=== PATIENT | female | born 1955 | race Caucasian/White ===

== ENCOUNTER 2018-06-16 13:35 | Outpatient (CLI) | payer BC ==
--- NOTE | 2018-06-16 14:57 | RAD ---
THREE VIEWS OF THE RIGHT FOOT: Comparison: None. History: Hallux valgus deformity of the foot. Patient's foot was operated on 20 years ago. FINDINGS: Three views of the right foot shows no evidence of acute fracture or dislocation. The first metatarsa l head hyperplasia and significant narrowing of the great toe metatarsal phalangeal joint. Osseous er osions are seen surrounding the great toe metatarsal phalangeal joint. There is flattening of the second metatarsal head. There is bony expansion of the proximal phalanx of the small toe. There is an osseous erosions involving the neck of the fifth metatarsal. Degenerative changes and erosions are seen surrounding the bones of the mid foot. IMPRESSION: 1. Degenerative changes involving the great toe and midfoot. Erosive osteoarthropathy or gout are pos sibilities. 2. Nonspecific expansile lesion involving the proximal phalanx of the small toe. This has a narrow zo ne of transition and appears benign. POS: [facility]
--- NOTE | 2018-06-16 15:26 | RAD ---
LEFT FOOT THREE VIEWS: HISTORY: Hallux valgus. COMPARISON: None. FINDINGS: There is osteonecrosis of the second metatarsal head. Severe degenerative disease of the great toe m etatarsophalangeal joint. There is erosion of the distal phalanx and middle phalanx, crossing the di stal interphalangeal joint of the middle toe. Severe degenerative changes of the midfoot. Mild flatfoot deformity. Large plantar calcaneal spur. IMPRESSION: 1. Findings concerning for osteomyelitis and septic arthritis of the distal phalanx and middle phala nx, middle toe, crossing the distal interphalangeal joint. 2. Severe degenerative changes of the mid foot, likely neuropathic in nature. 3. 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 POS: [facility]
== END 2018-06-16 13:36 | disposition home or self-care (01) ==
LOC: BICRAD 13:35
PROVIDERS: ATTEND Podiatrist
DX: M21.611 Bunion of right foot (principal); M20.10 Hallux valgus (acquired), unspecified foot; M19.072 Primary osteoarthritis, left ankle and foot; M19.071 Primary osteoarthritis, right ankle and foot; M87.875 Other osteonecrosis, left foot

== ENCOUNTER 2019-06-20 07:54 | Outpatient (CLI) | payer MEDICARE, BC ==
--- NOTE | 2019-06-20 10:40 | CT ---
PRE AND POST CONTRAST SOFT TISSUE NECK CT: HISTORY: Hyperparathyroidism. Evaluate for parathyroid adenoma. COMPARISON: None. FINDINGS: Visualized brain parenchyma is unremarkable. Visualized sinuses demonstrate adequate aeration. Aerodigestive tract is patent. No mucosal abnormality. Midline fatty raphae of the tongue is preser cielo. No obvious masses in the oral cavity. There is mild fullness at the level of the lingual tonsi ls, likely due to lymphoid hyperplasia. Epiglottis has a normal caliber. Preepiglottic fat is preserved. The supraglottic, glottic, and sub glottic larynx is unremarkable. Symmetric attenuation of the paraspinal muscles. Symmetric attenuation of the parotid and submandibular glands. No evidence of lymphadenopathy by size criteria. Central spinal canal is patent. No significant central canal stenosis. There are varying degrees of foraminal narrowing due to degenerative change. Cervical spine vertebral body heights are maintaine d. No fracture. No acute abnormality in the mediastinum or visualized lung parenchyma. Chronic lung parenchymal garcia ges are noted. The great vessels of the neck do demonstrate patency. There is evidence of atherosclerosis of the vi sualized aorta. There is calcified plaque as well as a stent in the right carotid bifurcation and pr oximal internal carotid artery. Evaluation is limited by technique. The stent appears to be patent. There is hypoattenuation in the right thyroid lobe, measuring 0.7 x 0.5 cm. Additional hypoattenuati on of the left thyroid lobe measuring 0.6 x 0.4 cm. Posterior to the left thyroid lobe is an intrinsic hypodense lesion with evidence of homogeneous enha ncement. This lesion is just lateral to the left aspect of the esophagus and just posterior to the l eft tracheoesophageal groove. The lesion measures 1.3 x 0.5 cm. Location and imaging characteristic s favor a left-sided parathyroid adenoma. Additional candidates for a parathyroid adenoma are not ap preciated. Incidental transvenous pacer is incompletely evaluated. There are degenerative changes in the right acromioclavicular joint space. IMPRESSION: Left-sided parathyroid adenoma as described above. The patient was scheduled for a nuclear medicine scan today; however, the patient did not feel up to it. The patient has been rescheduled for June 12. POS: [facility]
[2019-06-20] MEDS ORDERED: Iopamidol 370 76% 100 ML VIAL ONE (14:48)
== END 2019-06-20 07:55 | disposition home or self-care (01) ==
LOC: CT 07:54
PROVIDERS: ATTEND Otolaryngology Plastic Surgery within the Head & Neck
DX: E21.0 Primary hyperparathyroidism (principal); D35.1 Benign neoplasm of parathyroid gland
CPT/HCPCS: 70492; 82565; Q9967

== ENCOUNTER 2019-09-14 09:19 | Outpatient (CLI) | payer MEDICARE, BC ==
--- NOTE | 2019-09-14 12:57 | NM ---
Radionucleotide parathyroid scan HISTORY: Hypercalcemia. Abnormal CT scan. FINDINGS: Correlated with CT neck 06/20/2019. Immediately posterior to the superior pole left thyroid lobe is a focal area of significantly increas ed sestamibi uptake on the delayed images. On the current SPECT images, it correlates with the hyperenhancing nodule seen on recent CT. No other focal areas of abnormal uptake are evident. IMPRESSION : Positive exam. Parathyroid adenoma behind the superior pole left thyroid lobe.
== END 2019-09-14 09:20 | disposition home or self-care (01) ==
LOC: NM 09:19
PROVIDERS: ATTEND Otolaryngology Plastic Surgery within the Head & Neck
DX: E21.0 Primary hyperparathyroidism (principal); D35.1 Benign neoplasm of parathyroid gland
CPT/HCPCS: 78072; A9500

== ENCOUNTER 2020-06-07 22:51 | Emergency (ER) | payer MEDICARE, BC ==
[2020-06-08] MEDS ORDERED: Ketorolac Tromethamine 30 MG/ML VIAL ONE (00:07)
[2020-06-08] MEDS ORDERED: Lidocaine 5% Patch TD SCH (01:30)
== END 2020-06-08 01:38 | disposition home or self-care (01) ==
LOC: ERS 22:51
DX: S39.011A Strain of muscle, fascia and tendon of abdomen, initial encounter (principal); I25.2 Old myocardial infarction; J44.9 Chronic obstructive pulmonary disease, unspecified; Z87.891 Personal history of nicotine dependence; Z79.82 Long term (current) use of aspirin; Z79.899 Other long term (current) drug therapy; X50.1XXA Overexertion from prolonged static or awkward postures, initial encounter
CPT/HCPCS: 96374; J1885

== ENCOUNTER 2020-06-28 15:37 | Emergency (ER) | payer MEDICARE, BC ==
[2020-06-28 16:34] LABS: Bacteria/HPF None Seen HPF (None Seen); Bilirubin Negative (Negative); Blood, Urine Negative (Negative); Clarity Clear (Clear); Glucose, Urine (Dipstick) Normal (Negative); Ketone, Urine Negative (Negative); Leukocyte Negative Leu/uL (Negative); Nitrite Negative (Negative); Protein, Urine (Dipstick) 30 mg/dL (Neg-Trace); RBC/HPF 0-3 HPF (0-3); Specific Gravity, Urine 1.011 (1.002-1.036); Squamous Epithelial None Seen HPF (0-3); Urobilinogen Normal mg/dL (Less than 2); WBC/HPF 0-3 HPF (0-3)
[2020-06-28] MEDS ORDERED: Ondansetron PF 4 MG/2 ML Vial ONE (17:15)
[2020-06-28] MEDS ORDERED: Ketorolac Tromethamine 30 MG/ML VIAL ONE (17:15)
[2020-06-28] MEDS ORDERED: Morphine 4 MG/ML VIAL ONE (17:15)
[2020-06-28 17:30] LABS: #Eosinphils 0.2 thou/uL (0.0-0.7); #Monocytes 0.7 thou/uL (0.11-0.59); #Neutrophils 7.6 thou/uL (1.40-6.50); %Basophils 0.1 % (0.0-1.0); %Eosinophils 1.5 % (0.0-10.0); %Monocytes 6.2 % (0.0-10.0); %Neutrophils 73.1 % (42.0-75.0); Hemoglobin 9.6 g/dL (12.0-16.0); Mean Corpuscular HGB CONC 31.2 g/dL (32.0-36.0); Mean Corpuscular Hemoglobin 25.3 pg (27.0-31.0); Mean Platelet Volume 7.9 fL (7.4-10.4); Platelet Count 195 thou/uL (130-400); RBC Distribution Width 17.1 % (11.5-14.5); White Blood Cell (WBC) Count 10.4 thou/uL (4.8-10.8)
[2020-06-28 18:01] LABS: ALT (SGPT) 14 U/L (8-55); AST (SGOT) 31 U/L (5-34); Albumin 4.5 g/dL (3.4-4.8); Alkaline Phosphatase 168 U/L (40-110); Anion Gap 14 mmol/L (10-20); BUN (Urea Nitrogen) 29 mg/dL (9.8-20.1); Bilirubin, Total 0.2 mg/dL (0.2-1.2); Calc. Creatinine Clearance 0 mL/min (70-130); Calcium 9.8 mg/dL (7.8-10.44); Carbon Dioxide 26 mmol/L (23-31); Chloride 102 mmol/L (98-107); Globulin 3.3 g/dL (2.4-3.5); Glucose 99 mg/dL (80-115); Potassium 4.3 mmol/L (3.5-5.1); Protein, Total 7.8 g/dL (5.8-8.1); Sodium 138 mmol/L (136-145)
== END 2020-06-28 19:21 | disposition home or self-care (01) ==
LOC: ERS 15:37
DX: M54.5 Low back pain (principal); R10.30 Lower abdominal pain, unspecified; J44.9 Chronic obstructive pulmonary disease, unspecified; I25.2 Old myocardial infarction; I25.10 Atherosclerotic heart disease of native coronary artery without angina pectoris; Z87.891 Personal history of nicotine dependence; Z79.899 Other long term (current) drug therapy; Z79.82 Long term (current) use of aspirin
CPT/HCPCS: 72131; 80053; 81003; 81015; 85025; 85652; 86140; 96374; 96375; J1885; J2270; J2405

== ENCOUNTER 2021-02-27 13:11 | Outpatient (CLI) | payer MEDICARE, BC ==
[2021-02-27 14:44] LABS: #Eosinphils 0.1 10x3/uL (0.0-0.5); #Monocytes 0.9 10x3/uL (0.0-1.1); #Neutrophils 6.3 10x3/uL (1.5-8.4); %Basophils 0.3 % (0.0-2.0); %Eosinophils 1.4 % (0.0-6.0); %Lymphocytes 15.2 % (18.0-47.0); %Monocytes 10.2 % (0.0-10.0); %Neutrophils 72.3 % (40.0-75.0); Hemoglobin 8.4 g/dL (12.0-15.5); Mean Corpuscular HGB CONC 30.1 g/dL (32.0-36.0); Mean Corpuscular Hemoglobin 24.3 pg (27.0-33.0); Mean Corpuscular Volume 80.6 fl (81.6-98.3); Mean Platelet Volume 10.1 fl (7.4-10.4); Platelet Count 184 10x3/uL (150-450); RBC Distribution Width 19.4 % (11.5-14.5); Red Blood Cell (RBC) Count 3.46 10x6/uL (3.90-5.03); White Blood Cell (WBC) Count 8.8 10x3/uL (3.5-10.5)
[2021-02-27 15:12] LABS: Anion Gap 17 mmol/L (10-20); BUN (Urea Nitrogen) 30 mg/dL (9.8-20.1); Calc. Creatinine Clearance 0 mL/min (70-130); Calcium 9.3 mg/dL (7.8-10.44); Carbon Dioxide 24 mmol/L (23-31); Chloride 94 mmol/L (98-107); Glucose 120 mg/dL (80-115); Potassium 4.2 mmol/L (3.5-5.1); Sodium 131 mmol/L (136-145)
[2021-02-28 11:59] LABS: SARS-CoV-2 PCR by NAA Not Detected (NotDetected)
== END 2021-02-27 13:12 | disposition home or self-care (01) ==
LOC: LABBT 13:11
PROVIDERS: ATTEND Specialist
DX: Z01.818 Encounter for other preprocedural examination (principal); K64.8 Other hemorrhoids; Z20.822 Contact with and (suspected) exposure to COVID-19
CPT/HCPCS: 80048; 85025; 93005; U0003; U0005; 93010

== ENCOUNTER 2021-03-04 10:46 | Day surgery (SDC) | payer MEDICARE, BC ==
[2021-03-01 10:43] VITALS: BMI 32.3
[2021-03-04] MEDS ORDERED: Acetaminophen 500 MG TAB ONE (11:00)
[2021-03-04] MEDS ORDERED: ceFAZolin 2 GM/DEX 5% 100 ML BAG ONE (11:00)
[2021-03-04] MEDS ORDERED: Ketorolac Tromethamine 30 MG/ML VIAL ONE (11:00)
[2021-03-04] MEDS ORDERED: Fentanyl 100 MCG/2 ML VIAL ONE (12:17)
[2021-03-04] MEDS ORDERED: Phenylephrine 10 MG/ML VIAL ONE (12:44)
[2021-03-04] MEDS ORDERED: PHENYLEPHRINE-NS 100 MCG/ML 10 ML SYRINGE ONE (12:44)
[2021-03-04] MEDS ORDERED: Lidocaine 2% Jelly 5 ML TUBE ONE (12:54)
[2021-03-04] MEDS ORDERED: EPINEPHrine 1 MG/ML AMP ONE (12:54)
[2021-03-04] MEDS ORDERED: Bupivacaine 0.25% HCL 30 ML VIAL ONE (12:54)
[2021-03-04] MEDS ORDERED: Lidocaine 1% PF 5 ML VIAL ONE (12:58)
[2021-03-04] MEDS ORDERED: PROPOFOL 200 MG/20 ML VIAL ONE (12:58)
[2021-03-04] MEDS ORDERED: Ondansetron PF 4 MG/2 ML Vial ONE (12:58)
[2021-03-04] MEDS ORDERED: Rocuronium Bromide 10 MG/ML (10ML VIAL) ONE (12:58)
[2021-03-04] MEDS ORDERED: SUGAMMADEX SODIUM 200 MG/2 ML VIAL ONE (13:40)
== END 2021-03-04 15:46 | disposition home or self-care (01) ==
LOC: SDC 10:46
PROVIDERS: ATTEND Specialist
PROC: 06BY3ZC Excision of Hemorrhoidal Plexus, Percutaneous Approach (ICD-10-PCS; principal; 2021-03-04)
DX: K64.8 Other hemorrhoids (principal); G43.909 Migraine, unspecified, not intractable, without status migrainosus; M19.90 Unspecified osteoarthritis, unspecified site; K21.9 Gastro-esophageal reflux disease without esophagitis; I11.0 Hypertensive heart disease with heart failure; I50.9 Heart failure, unspecified; I25.10 Atherosclerotic heart disease of native coronary artery without angina pectoris; Z87.891 Personal history of nicotine dependence; Z79.02 Long term (current) use of antithrombotics/antiplatelets; Z79.82 Long term (current) use of aspirin; Z79.899 Other long term (current) drug therapy; Z88.8 Allergy status to other drugs, medicaments and biological substances; Z90.49 Acquired absence of other specified parts of digestive tract; Z95.5 Presence of coronary angioplasty implant and graft; Z95.810 Presence of automatic (implantable) cardiac defibrillator
CPT/HCPCS: 88304; J0171; J1885; J2370; J2405; J2704; J3010; S0020

== ENCOUNTER 2021-05-28 09:11 | Inpatient (IN) | payer OTHER, MEDICARE, BC ==
[2021-05-28] MEDS ORDERED: Milk Of Magnesia 30 ML UDCUP PO PRN (11:22)
[2021-05-28] MEDS ORDERED: Sodium Chloride 0.9% 1,000 ML IV SCH (12:00)
[2021-05-28 12:02] LABS: Hemoglobin 7.5 g/dL (12.0-16.0); Mean Corpuscular HGB CONC 30.1 g/dL (32.0-36.0); Mean Corpuscular Hemoglobin 25.9 pg (27.0-31.0); Red Blood Cell (RBC) Count 2.87 mill/uL (4.20-5.40); White Blood Cell (WBC) Count 13.5 thou/uL (4.8-10.8)
[2021-05-28 12:14] LABS: ALT (SGPT) 10 U/L (8-55); AST (SGOT) 17 U/L (5-34); Albumin 3.6 g/dL (3.4-4.8); Alkaline Phosphatase 103 U/L (40-110); Anion Gap 13 mmol/L (10-20); BUN (Urea Nitrogen) 46 mg/dL (9.8-20.1); Bilirubin, Total 1.4 mg/dL (0.2-1.2); Calc. Creatinine Clearance 0 mL/min (70-130); Calcium 9.7 mg/dL (7.8-10.44); Carbon Dioxide 21 mmol/L (23-31); Chloride 103 mmol/L (98-107); Globulin 2.9 g/dL (2.4-3.5); Glucose 193 mg/dL (80-115); Protein, Total 6.5 g/dL (5.8-8.1); Sodium 131 mmol/L (136-145)
[2021-05-28] MEDS ORDERED: cefTRIAXone\\ROCEPHIN 1 GM in Sodium Chloride 0.9% 100 ML IVPB SCH (12:15)
[2021-05-28] MEDS ORDERED: Sodium Phosphate 30 MMOL in Sodium Chloride 0.9% 250 ML 250 ML IVPB SCH (12:15)
[2021-05-28] MEDS ORDERED: Magnesium Sulfate 3 GM in Sodium Chloride 0.9% 100 ML IVPB SCH (12:15)
[2021-05-28 12:30] LABS: Band 37 % (5-11); Hypochromia SLIGHT = 6-15 cells (100X) (0-5/hpf); Lymphocytes 2 % (21-51); MDiff Complete? YES; Mean Platelet Volume 8.5 fL (7.4-10.4); Metamyelocyte 2 % (0-0); Monocytes 2 % (0-10); Neutrophil 57 % (42-75); Platelet Count 114 thou/uL (130-400); Platelet Morphology Comment Appears Decreased; Polychromasia SLIGHT = 2-3 cells (100X) (0-2/hpf); RBC Distribution Width 17.9 % (11.5-14.5)
[2021-05-28 13:04] VITALS: BMI 34.2
[2021-05-28] MEDS ORDERED: Calcium Gluc 4.6 MEQ/10 ML (100 MG/ML) SLOW IVP SCH (13:41)
[2021-05-28] MEDS ORDERED: Dextrose 50% Abboject 50 ML SYRINGE SLOW IVP PRN (13:42)
[2021-05-28] MEDS ORDERED: Insulin Regular 300 UNITS/3 ML VIAL IVP SCH (13:45)
[2021-05-28] MEDS: Acetaminophen 325 MG TAB PO PRN (14:20)
[2021-05-28] MEDS ORDERED: LOKELMA 10 GM PACKET PO SCH (17:45)
[2021-05-28] MEDS: Mometasone 200 MCG/Formoterol 5 MCG 120 PUFF INHALER INH SCH (18:27)
[2021-05-28] MEDS ORDERED: VANCOMYCIN 1.25 GM/250 ML BAG 1.25 GM in Premix Bag 1 BAG IVPB SCH (18:45)
[2021-05-28] MEDS ORDERED: Famotidine/PF 20 mg/2ml Vial SLOW IVP SCH (21:00)
[2021-05-28] MEDS: traMADol HCl 50 MG TAB PO PRN (21:22)
[2021-05-28] MEDS: Cefepime 1 GM in Sodium Chloride 0.9% 100 ML IVPB SCH (21:24)
[2021-05-28] MEDS ORDERED: Dextrose 5% in Water 1,000 ML IV PRN (22:45)
[2021-05-28] MEDS ORDERED: Dextrose 50% Abboject 50 ML SYRINGE IVP PRN (22:45)
[2021-05-28] MEDS ORDERED: HumaLOG 300 UNITS/3 ML VIAL SC PRN ×2 (22:45)
[2021-05-29 00:27] LABS: Anion Gap 19 mmol/L (10-20); BUN (Urea Nitrogen) 43 mg/dL (9.8-20.1); Calc. Creatinine Clearance 25 mL/min (70-130); Calcium 9.5 mg/dL (7.8-10.44); Carbon Dioxide 15 mmol/L (23-31); Chloride 105 mmol/L (98-107); Glucose 170 mg/dL (80-115); Potassium 4.2 mmol/L (3.5-5.1); Sodium 135 mmol/L (136-145)
[2021-05-29] MEDS: Acetaminophen 325 MG TAB PO PRN ×2 (02:38→20:38)
[2021-05-29 04:17] LABS: Hemoglobin 7.9 g/dL (12.0-16.0); Mean Corpuscular HGB CONC 30.7 g/dL (32.0-36.0); Mean Corpuscular Hemoglobin 26.4 pg (27.0-31.0); Mean Corpuscular Volume 86.2 fL (78.0-98.0); Mean Platelet Volume 8.9 fL (7.4-10.4); Platelet Count 130 thou/uL (130-400); Red Blood Cell (RBC) Count 2.99 mill/uL (4.20-5.40); White Blood Cell (WBC) Count 15.5 thou/uL (4.8-10.8)
[2021-05-29 04:24] LABS: Anion Gap 17 mmol/L (10-20); BUN (Urea Nitrogen) 41 mg/dL (9.8-20.1); Calc. Creatinine Clearance 27 mL/min (70-130); Calcium 9.6 mg/dL (7.8-10.44); Carbon Dioxide 16 mmol/L (23-31); Cardiac Risk 11.9 (Less than 4.5); Chloride 103 mmol/L (98-107); Cholesterol 155 mg/dl (< 200 Desired); Glucose 140 mg/dL (80-115); HDL Cholesterol 13 mg/dL (>60 Neg Risk); Magnesium 2.5 mg/dL (1.6-2.6); Potassium 4.4 mmol/L (3.5-5.1); Sodium 132 mmol/L (136-145); Triglycerides 501 mg/dL (Less than 150)
[2021-05-29 04:36] LABS: Band 32 % (5-11); Lymphocytes 1 % (21-51); MDiff Complete? YES; Monocytes 6 % (0-10); Neutrophil 61 % (42-75)
[2021-05-29] MEDS: HYDROcodone/Acetaminophen 5/325 mg Tablet PO PRN ×2 (04:51→09:22)
[2021-05-29] MEDS: Mometasone 200 MCG/Formoterol 5 MCG 120 PUFF INHALER INH SCH ×2 (06:49→19:00)
[2021-05-29] MEDS: Cefepime 1 GM in Sodium Chloride 0.9% 100 ML IVPB SCH ×2 (08:08→20:39)
[2021-05-29] MEDS ORDERED: Carvedilol 25 MG TAB PO SCH (08:15)
[2021-05-29] MEDS: traMADol HCl 50 MG TAB PO PRN (14:17)
[2021-05-29] MEDS: Carvedilol 25 MG TAB PO SCH (16:53)
[2021-05-29] MEDS ORDERED: ALPRAZolam 0.25 MG TAB PO PRN ×2 (17:24→17:39)
[2021-05-29] MEDS ORDERED: Electrolyte Replacement Protocol 1 EACH FS SCH (17:45)
[2021-05-29] MEDS: traZODone HCl 50 MG TAB PO SCH (20:38)
[2021-05-29] MEDS: Gabapentin 100 MG CAP PO SCH (20:38)
[2021-05-29] MEDS ORDERED: Mometasone 100 MCG/Formoterol 5 MCG 120 PUFF INHALER INH SCH (21:00)
[2021-05-29] MEDS ORDERED: traZODone HCl 50 MG TAB PO SCH (21:00)
[2021-05-29] MEDS ORDERED: Non-Formulary Item 1 EACH (Tiotropium Bromide 4 GM Inhaler) INH SCH (21:00)
[2021-05-29] MEDS: Ivabradine 5 MG TAB PO SCH (21:19)
[2021-05-30] MEDS: Acetaminophen 325 MG TAB PO PRN (02:36)
[2021-05-30 06:43] LABS: ALT (SGPT) 9 U/L (8-55); AST (SGOT) 16 U/L (5-34); Albumin 3.7 g/dL (3.4-4.8); Alkaline Phosphatase 106 U/L (40-110); Anion Gap 18 mmol/L (10-20); BUN (Urea Nitrogen) 38 mg/dL (9.8-20.1); Bilirubin, Total 0.4 mg/dL (0.2-1.2); Calc. Creatinine Clearance 27 mL/min (70-130); Carbon Dioxide 17 mmol/L (23-31); Chloride 101 mmol/L (98-107); Globulin 2.5 g/dL (2.4-3.5); Glucose 105 mg/dL (80-115); Magnesium 2.3 mg/dL (1.6-2.6); Potassium 3.9 mmol/L (3.5-5.1); Protein, Total 6.2 g/dL (5.8-8.1); Sodium 132 mmol/L (136-145)
[2021-05-30 06:58] LABS: Mean Corpuscular HGB CONC 31.4 g/dL (32.0-36.0); Mean Corpuscular Hemoglobin 26.6 pg (27.0-31.0); Mean Corpuscular Volume 84.5 fL (78.0-98.0); Mean Platelet Volume 8.5 fL (7.4-10.4); Platelet Count 136 thou/uL (130-400); RBC Distribution Width 17.8 % (11.5-14.5); White Blood Cell (WBC) Count 9.5 thou/uL (4.8-10.8)
[2021-05-30 07:37] LABS: Band 11 % (5-11); Lymphocytes 8 % (21-51); MDiff Complete? YES; Monocytes 8 % (0-10); Neutrophil 73 % (42-75); Platelet Morphology Comment Appears Adequate; Polychromasia SLIGHT = 2-3 cells (100X) (0-2/hpf)
[2021-05-30] MEDS: Mometasone 200 MCG/Formoterol 5 MCG 120 PUFF INHALER INH SCH ×2 (08:06→21:29)
[2021-05-30] MEDS: traMADol HCl 50 MG TAB PO PRN ×2 (08:20→23:11)
[2021-05-30] MEDS: Carvedilol 25 MG TAB PO SCH ×2 (08:23→16:33)
[2021-05-30] MEDS: Gabapentin 100 MG CAP PO SCH ×3 (08:23→20:12)
[2021-05-30] MEDS: Cholecalciferol 1,000 UNITS (25 MCG) TAB PO SCH (08:24)
[2021-05-30] MEDS: Stress 600 With Zinc 1 TAB PO SCH (08:25)
[2021-05-30] MEDS: Magnesium Oxide 250 MG TAB PO SCH (09:47)
[2021-05-30] MEDS: Ivabradine 5 MG TAB PO SCH ×2 (09:51→20:11)
[2021-05-30] MEDS: Cefepime 1 GM in Sodium Chloride 0.9% 100 ML IVPB SCH (09:51)
[2021-05-30] MEDS: cefTRIAXone\\ROCEPHIN 2 GM in Sodium Chloride 0.9% 100 ML IVPB SCH (13:00)
[2021-05-30] MEDS: Lactated Ringer's 1,000 ML IV SCH (13:30)
[2021-05-30] MEDS: traZODone HCl 50 MG TAB PO SCH (20:12)
[2021-05-31] MEDS: Lactated Ringer's 1,000 ML IV SCH ×2 (01:30→01:56)
[2021-05-31 06:18] LABS: ALT (SGPT) 12 U/L (8-55); AST (SGOT) 20 U/L (5-34); Albumin 3.3 g/dL (3.4-4.8); Alkaline Phosphatase 108 U/L (40-110); Anion Gap 13 mmol/L (10-20); BUN (Urea Nitrogen) 26 mg/dL (9.8-20.1); Bilirubin, Total 0.3 mg/dL (0.2-1.2); Calc. Creatinine Clearance 36 mL/min (70-130); Calcium 9.3 mg/dL (7.8-10.44); Carbon Dioxide 19 mmol/L (23-31); Chloride 104 mmol/L (98-107); Globulin 2.9 g/dL (2.4-3.5); Glucose 115 mg/dL (80-115); Magnesium 1.9 mg/dL (1.6-2.6); Potassium 3.8 mmol/L (3.5-5.1); Protein, Total 6.2 g/dL (5.8-8.1); Sodium 132 mmol/L (136-145)
[2021-05-31 06:23] LABS: Band 13 % (5-11); Hemoglobin 7.2 g/dL (12.0-16.0); Hypochromia SLIGHT = 6-15 cells (100X) (0-5/hpf); Lymphocytes 2 % (21-51); MDiff Complete? YES; Mean Corpuscular HGB CONC 31.4 g/dL (32.0-36.0); Mean Corpuscular Hemoglobin 26.1 pg (27.0-31.0); Mean Corpuscular Volume 83.3 fL (78.0-98.0); Mean Platelet Volume 8.6 fL (7.4-10.4); Monocytes 7 % (0-10); Neutrophil 78 % (42-75); Platelet Count 126 thou/uL (130-400); Platelet Morphology Comment Appears Adequate; RBC Distribution Width 17.8 % (11.5-14.5); Red Blood Cell (RBC) Count 2.75 mill/uL (4.20-5.40); White Blood Cell (WBC) Count 8.3 thou/uL (4.8-10.8)
[2021-05-31] MEDS: Mometasone 200 MCG/Formoterol 5 MCG 120 PUFF INHALER INH SCH ×2 (08:30→19:53)
[2021-05-31] MEDS: Stress 600 With Zinc 1 TAB PO SCH (08:48)
[2021-05-31] MEDS: Carvedilol 25 MG TAB PO SCH ×2 (08:48→15:00)
[2021-05-31] MEDS: Gabapentin 100 MG CAP PO SCH ×3 (08:48→21:25)
[2021-05-31] MEDS: Cholecalciferol 1,000 UNITS (25 MCG) TAB PO SCH (08:48)
[2021-05-31] MEDS: Ivabradine 5 MG TAB PO SCH ×2 (08:48→21:25)
[2021-05-31] MEDS: Magnesium Oxide 250 MG TAB PO SCH (09:00)
[2021-05-31] MEDS: cefTRIAXone\\ROCEPHIN 2 GM in Sodium Chloride 0.9% 100 ML IVPB SCH (12:00)
[2021-05-31] MEDS ORDERED: Ferrous Sulfate 325 MG TAB PO SCH (12:45)
[2021-05-31] MEDS: traMADol HCl 50 MG TAB PO PRN ×2 (13:14→21:26)
[2021-05-31] MEDS ORDERED: Atorvastatin Calcium 40 MG TAB PO SCH (21:00)
[2021-05-31] MEDS: traZODone HCl 50 MG TAB PO SCH (21:25)
[2021-06-01] MEDS: Acetaminophen 325 MG TAB PO PRN (02:41)
[2021-06-01 05:55] LABS: ALT (SGPT) 12 U/L (8-55); AST (SGOT) 20 U/L (5-34); Alkaline Phosphatase 99 U/L (40-110); Anion Gap 10 mmol/L (10-20); BUN (Urea Nitrogen) 18 mg/dL (9.8-20.1); Bilirubin, Total 0.3 mg/dL (0.2-1.2); Calc. Creatinine Clearance 49 mL/min (70-130); Carbon Dioxide 21 mmol/L (23-31); Chloride 105 mmol/L (98-107); Globulin 2.8 g/dL (2.4-3.5); Glucose 100 mg/dL (80-115); Magnesium 1.7 mg/dL (1.6-2.6); Potassium 3.7 mmol/L (3.5-5.1); Protein, Total 5.8 g/dL (5.8-8.1); Sodium 132 mmol/L (136-145)
[2021-06-01 06:49] LABS: Band 2 % (5-11); Eosinophils 1 % (0-10); Hemoglobin 7.1 g/dL (12.0-16.0); Hypochromia SLIGHT = 6-15 cells (100X) (0-5/hpf); Lymphocytes 11 % (21-51); MDiff Complete? YES; Mean Corpuscular HGB CONC 31.8 g/dL (32.0-36.0); Mean Corpuscular Hemoglobin 26.7 pg (27.0-31.0); Mean Corpuscular Volume 83.8 fL (78.0-98.0); Mean Platelet Volume 8.7 fL (7.4-10.4); Monocytes 3 % (0-10); Neutrophil 82 % (42-75); Platelet Count 129 thou/uL (130-400); Platelet Morphology Comment Appears Decreased; Polychromasia SLIGHT = 2-3 cells (100X) (0-2/hpf); Promyelocytes 1 % (0-0); RBC Distribution Width 17.7 % (11.5-14.5); Red Blood Cell (RBC) Count 2.65 mill/uL (4.20-5.40); Stomatocytes SLIGHT = 2-5 cells (100X) (0-1/hpf); White Blood Cell (WBC) Count 8.1 thou/uL (4.8-10.8)
[2021-06-01] MEDS: Mometasone 200 MCG/Formoterol 5 MCG 120 PUFF INHALER INH SCH (07:20)
[2021-06-01] MEDS ORDERED: Ferrous Sulfate 325 MG TAB PO SCH (08:00)
[2021-06-01 08:04] VITALS: BP 156/87; TEMP 97.9
[2021-06-01] MEDS: Cholecalciferol 1,000 UNITS (25 MCG) TAB PO SCH (08:07)
[2021-06-01] MEDS: Gabapentin 100 MG CAP PO SCH (08:07)
[2021-06-01] MEDS: Carvedilol 25 MG TAB PO SCH (08:07)
[2021-06-01] MEDS: Magnesium Oxide 250 MG TAB PO SCH (08:08)
[2021-06-01] MEDS: Ivabradine 5 MG TAB PO SCH (08:08)
[2021-06-01] MEDS: Stress 600 With Zinc 1 TAB PO SCH (08:08)
== END 2021-06-01 10:49 | disposition home health service (06) | DRG 871 ==
LOC: ERS 09:11 → CCU 11:02 → T4-B 05-29 13:00
PROVIDERS: ADMIT Hospitalist; ATTEND Family Medicine
PROC: 8E0ZXY6 Isolation (ICD-10-PCS; principal; 2021-05-28)
DX: A41.51 Sepsis due to Escherichia coli [E. coli] (principal); S06.5X9A Traumatic subdural hemorrhage with loss of consciousness of unspecified duration, initial encounter; R65.21 Severe sepsis with septic shock; U07.1 COVID-19; G93.41 Metabolic encephalopathy; N39.0 Urinary tract infection, site not specified; N17.9 Acute kidney failure, unspecified; I50.22 Chronic systolic (congestive) heart failure; I13.0 Hypertensive heart and chronic kidney disease with heart failure and stage 1 through stage 4 chronic kidney disease, or unspecified chronic kidney disease; E87.1 Hypo-osmolality and hyponatremia; I25.10 Atherosclerotic heart disease of native coronary artery without angina pectoris; F43.10 Post-traumatic stress disorder, unspecified; G47.00 Insomnia, unspecified; E78.1 Pure hyperglyceridemia; D50.9 Iron deficiency anemia, unspecified; M19.90 Unspecified osteoarthritis, unspecified site; I25.5 Ischemic cardiomyopathy; F32.A Depression, unspecified; E87.5 Hyperkalemia; J44.9 Chronic obstructive pulmonary disease, unspecified; D63.1 Anemia in chronic kidney disease; N18.9 Chronic kidney disease, unspecified; E83.42 Hypomagnesemia; E83.39 Other disorders of phosphorus metabolism; N18.30 Chronic kidney disease, stage 3 unspecified; F41.9 Anxiety disorder, unspecified; R73.9 Hyperglycemia, unspecified; E86.0 Dehydration; R40.2242 Coma scale, best verbal response, confused conversation, at arrival to emergency department; R40.2362 Coma scale, best motor response, obeys commands, at arrival to emergency department; R40.2132 Coma scale, eyes open, to sound, at arrival to emergency department; W01.198A Fall on same level from slipping, tripping and stumbling with subsequent striking against other object, initial encounter; Y92.009 Unspecified place in unspecified non-institutional (private) residence as the place of occurrence of the external cause; Z88.8 Allergy status to other drugs, medicaments and biological substances; Z95.810 Presence of automatic (implantable) cardiac defibrillator; Z95.5 Presence of coronary angioplasty implant and graft; Z79.899 Other long term (current) drug therapy; Z79.02 Long term (current) use of antithrombotics/antiplatelets; Z79.84 Long term (current) use of oral hypoglycemic drugs; Z87.891 Personal history of nicotine dependence
CPT/HCPCS: 36415; 36416; 70450; 80048; 80053; 80061; 83605; 83735; 85025; 87040; 93005; 94640; J0610; J0692; J0696; J1815; J3370; J3475; J3490; J7050; J7120; J7620; S0028

== ENCOUNTER 2022-06-02 21:36 | Observation (INO) | payer MEDICARE, BC ==
[2022-06-02 22:14] LABS: #Lymphocytes 1.7 thou/uL (1.20-3.40); #Monocytes 0.8 thou/uL (0.11-0.59); #Neutrophils 9.7 thou/uL (1.40-6.50); %Basophils 0.1 % (0.0-1.0); %Eosinophils 0.4 % (0.0-10.0); %Monocytes 6.4 % (0.0-10.0); %Neutrophils 79.2 % (42.0-75.0); Hemoglobin 8.3 g/dL (12.0-16.0); Mean Corpuscular HGB CONC 32.9 g/dL (32.0-36.0); Mean Corpuscular Hemoglobin 26.7 pg (27.0-31.0); Mean Corpuscular Volume 81.2 fl (78.0-98.0); Mean Platelet Volume 7.9 fL (7.4-10.4); Platelet Count 138 10x3/uL (130-400); RBC Distribution Width 15.8 % (11.5-14.5); Red Blood Cell (RBC) Count 3.09 mill/uL (4.20-5.40); White Blood Cell (WBC) Count 12.3 10x3/uL (4.8-10.8)
[2022-06-02 22:35] LABS: ALT (SGPT) 15 U/L (8-55); AST (SGOT) 17 U/L (5-34); Albumin 4.2 g/dL (3.4-4.8); Alkaline Phosphatase 110 U/L (40-110); Anion Gap 13 mmol/L (10-20); BUN (Urea Nitrogen) 35 mg/dL (9.8-20.1); Bilirubin, Total 0.3 mg/dL (0.2-1.2); Calc. Creatinine Clearance 0 mL/min (70-130); Calcium 9.8 mg/dL (7.8-10.44); Carbon Dioxide 24 mmol/L (23-31); Chloride 104 mmol/L (98-107); Estimated GFR 33; Globulin 2.5 g/dL (2.4-3.5); Glucose 90 mg/dL (80-115); Magnesium 1.8 mg/dL (1.6-2.6); Potassium 4.3 mmol/L (3.5-5.1); Protein, Total 6.7 g/dL (5.8-8.1); Sodium 137 mmol/L (136-145)
[2022-06-02 23:20] LABS: Acetaminophen Less than 10.0 mcg/mL (10.0-30.0); Alcohol Less than 10 mg/dL (Less than 10); Salicylate Less than 8.0 mg/dL (15.0-30.0)
[2022-06-02] MEDS ORDERED: Thiamine HCl 200 MG/2 ML VIAL SLOW IVP SCH (23:30)
[2022-06-03] MEDS ORDERED: Ondansetron PF 4 MG/2 ML Vial IVP PRN (00:49)
[2022-06-03] MEDS ORDERED: Ondansetron ODT 4 MG TAB PO PRN (00:49)
[2022-06-03] MEDS ORDERED: Acetaminophen 650 MG Suppository PR PRN (00:49)
[2022-06-03 04:11] LABS: Bacteria/HPF None Seen HPF (None Seen); Bilirubin Negative (Negative); Blood, Urine Negative (Negative); Clarity Clear (Clear); Glucose, Urine (Dipstick) Normal (Negative); Ketone, Urine Negative (Negative); Leukocyte 25 Leu/uL (Negative); Nitrite Negative (Negative); Protein, Urine (Dipstick) Negative (Neg-Trace); RBC/HPF 0-3 HPF (0-3); Specific Gravity, Urine 1.006 (1.002-1.036); Squamous Epithelial 0-3 HPF (0-3); Urobilinogen Normal mg/dL (Less than 2); WBC/HPF 0-3 HPF (0-3)
[2022-06-03 04:16] LABS: Amphetamine Not Detected (NotDetected); Barbiturates Screen Not Detected (NotDetected); Benzodiazepine Screen Not Detected (NotDetected); Cocaine Metabolite Screen Not Detected (NotDetected); Methadone Not Detected (NotDetected); Methamphetamine Not Detected (NotDetected); Opiate Screen Not Detected (NotDetected); Oxycodone Screen Not Detected (NotDetected); Phencyclidine (PCP) Not Detected (NotDetected); THC/Cannabinoid Screen Detected (NotDetected); Tricyclic Screen Not Detected (NotDetected)
[2022-06-03 04:33] LABS: #Lymphocytes 1.7 thou/uL (1.20-3.40); #Monocytes 0.8 thou/uL (0.11-0.59); #Neutrophils 7.2 thou/uL (1.40-6.50); %Basophils 0.2 % (0.0-1.0); %Eosinophils 0.5 % (0.0-10.0); %Lymphocytes 17.6 % (21.0-51.0); %Monocytes 7.9 % (0.0-10.0); %Neutrophils 73.8 % (42.0-75.0); Hemoglobin 8.9 g/dL (12.0-16.0); Mean Corpuscular Hemoglobin 26.7 pg (27.0-31.0); Mean Corpuscular Volume 83.5 fl (78.0-98.0); Mean Platelet Volume 8.3 fL (7.4-10.4); Platelet Count 147 10x3/uL (130-400); Red Blood Cell (RBC) Count 3.34 mill/uL (4.20-5.40); White Blood Cell (WBC) Count 9.8 10x3/uL (4.8-10.8)
[2022-06-03 04:37] LABS: SARS-CoV-2 NAA Rapid Test Not Detected (NotDetected)
[2022-06-03 04:48] LABS: Lactic Acid 1.6 mmol/L (0.5-2.2)
[2022-06-03] MEDS ORDERED: Lorazepam 1 MG TAB PO PRN (04:49)
[2022-06-03] MEDS ORDERED: Lorazepam 2 MG/ML VIAL IM PRN (04:49)
[2022-06-03 04:53] LABS: Anion Gap 13 mmol/L (10-20); BUN (Urea Nitrogen) 33 mg/dL (9.8-20.1); Calc. Creatinine Clearance 0 mL/min (70-130); Calcium 9.8 mg/dL (7.8-10.44); Carbon Dioxide 21 mmol/L (23-31); Chloride 106 mmol/L (98-107); Estimated GFR 37; Glucose 85 mg/dL (80-115); Iron 20 ug/dL (50-170); Iron Binding Capacity, Total 411 mcg/dL (265-497); Iron Binding Capacity, Total 449 mcg/dL (265-497); Potassium 4.3 mmol/L (3.5-5.1); Sodium 136 mmol/L (136-145)
[2022-06-03 04:54] LABS: Iron 25 ug/dL (50-170)
[2022-06-03] MEDS ORDERED: Electrolyte Replacement Protocol 1 EACH FS SCH (05:00)
[2022-06-03] MEDS ORDERED: Lorazepam 1 MG TAB ONE ×2 (05:07→12:33)
[2022-06-03] MEDS: Dextrose 5 % And 0.9 % NaCl 1,000 ML IV SCH ×2 (05:13→16:00)
[2022-06-03] MEDS: Lorazepam 1 MG TAB PO SCH ×4 (05:13→23:47)
[2022-06-03 05:16] LABS: Phosphorus 3.6 mg/dL (2.3-4.7)
[2022-06-03 05:19] LABS: Ferritin 34.51 ng/mL (10-291)
[2022-06-03] MEDS ORDERED: Magnesium 2 GM/50 ML(in water) 2 GM in Premix Bag 1 BAG IVPB SCH (08:00)
[2022-06-03] MEDS ORDERED: Magnesium 2 GM/50 ML BAG (IN WATER) ONE (08:05)
[2022-06-03] MEDS ORDERED: traMADol HCl 50 MG TAB ONE (10:14)
[2022-06-03] MEDS: traMADol HCl 50 MG TAB PO PRN ×3 (10:16→22:26)
[2022-06-03] MEDS ORDERED: Iron, Sodium Ferric Gluconate 250 MG in Sodium Chloride 0.9% 250 ML 250 ML IVPB SCH (11:00)
[2022-06-03 15:45] VITALS: BMI 29.7
[2022-06-03] MEDS: Carvedilol 25 MG TAB PO SCH (16:01)
[2022-06-03] MEDS: Amoxicillin/Potassium Clav 875 MG TAB PO SCH (20:02)
[2022-06-03] MEDS: Acetaminophen 325 MG TAB PO PRN (22:26)
[2022-06-04] MEDS ORDERED: Lorazepam 1 MG TAB PO PRN (04:49)
[2022-06-04] MEDS: Lorazepam 1 MG TAB PO SCH ×2 (05:51→11:59)
[2022-06-04 08:09] LABS: #Eosinphils 0.1 thou/uL (0.0-0.7); #Lymphocytes 1.4 thou/uL (1.20-3.40); #Monocytes 0.5 thou/uL (0.11-0.59); #Neutrophils 5.1 thou/uL (1.40-6.50); %Eosinophils 0.9 % (0.0-10.0); %Lymphocytes 19.7 % (21.0-51.0); %Monocytes 6.9 % (0.0-10.0); %Neutrophils 72.5 % (42.0-75.0); Hemoglobin 8.3 g/dL (12.0-16.0); Mean Corpuscular HGB CONC 31.7 g/dL (32.0-36.0); Mean Corpuscular Hemoglobin 26.5 pg (27.0-31.0); Mean Corpuscular Volume 83.6 fl (78.0-98.0); Mean Platelet Volume 7.8 fL (7.4-10.4); Platelet Count 140 10x3/uL (130-400); RBC Distribution Width 15.7 % (11.5-14.5); Red Blood Cell (RBC) Count 3.13 mill/uL (4.20-5.40); White Blood Cell (WBC) Count 7.1 10x3/uL (4.8-10.8)
[2022-06-04] MEDS: Rosuvastatin 10 MG TAB PO SCH (08:25)
[2022-06-04] MEDS: Carvedilol 25 MG TAB PO SCH ×2 (08:25→16:34)
[2022-06-04] MEDS: Clopidogrel Bisulfate 75 MG TAB PO SCH (08:25)
[2022-06-04] MEDS: Amlodipine 5 MG TAB PO SCH (08:25)
[2022-06-04] MEDS: Aspirin 81 mg Enteric Coated Tablet PO SCH (08:26)
[2022-06-04] MEDS: Allopurinol 300 MG TAB PO SCH (08:26)
[2022-06-04] MEDS: Ferrous Sulfate 325 MG TAB PO SCH (08:26)
[2022-06-04] MEDS: Amoxicillin/Potassium Clav 875 MG TAB PO SCH ×2 (08:26→20:14)
[2022-06-04 08:28] LABS: Anion Gap 12 mmol/L (10-20); BUN (Urea Nitrogen) 23 mg/dL (9.8-20.1); Calc. Creatinine Clearance 50 mL/min (70-130); Calcium 9.9 mg/dL (7.8-10.44); Carbon Dioxide 23 mmol/L (23-31); Chloride 106 mmol/L (98-107); Estimated GFR 52; Glucose 90 mg/dL (80-115); Potassium 4.5 mmol/L (3.5-5.1); Sodium 136 mmol/L (136-145)
[2022-06-04] MEDS: Acetaminophen 325 MG TAB PO PRN (11:59)
[2022-06-04] MEDS: traMADol HCl 50 MG TAB PO PRN (15:33)
[2022-06-04] MEDS ORDERED: oxyCODONE 5 MG TAB PO SCH (16:00)
[2022-06-04] MEDS ORDERED: Melatonin 3 MG TAB PO PRN (19:59)
[2022-06-04] MEDS: Fioricet 325/50/40 mg Tablet PO PRN (20:14)
[2022-06-04] MEDS: Acetaminophen 500 MG TAB PO SCH (20:14)
[2022-06-05] MEDS ORDERED: Lorazepam 1 MG TAB PO PRN (04:49)
[2022-06-05] MEDS ORDERED: Lorazepam 0.5 MG TAB PO SCH (05:00)
[2022-06-05] MEDS: Fioricet 325/50/40 mg Tablet PO PRN (05:33)
[2022-06-05] MEDS: Amoxicillin/Potassium Clav 875 MG TAB PO SCH (09:27)
[2022-06-05] MEDS: Allopurinol 300 MG TAB PO SCH (09:27)
[2022-06-05] MEDS: Rosuvastatin 10 MG TAB PO SCH (09:27)
[2022-06-05] MEDS: Carvedilol 25 MG TAB PO SCH ×2 (09:27→15:59)
[2022-06-05] MEDS: Acetaminophen 500 MG TAB PO SCH ×2 (09:27→15:58)
[2022-06-05] MEDS: Amlodipine 5 MG TAB PO SCH (09:28)
[2022-06-05] MEDS: Ferrous Sulfate 325 MG TAB PO SCH (09:28)
[2022-06-05] MEDS: Aspirin 81 mg Enteric Coated Tablet PO SCH (09:28)
[2022-06-05] MEDS: Clopidogrel Bisulfate 75 MG TAB PO SCH (09:28)
[2022-06-05] MEDS ORDERED: Amlodipine 5 MG TAB PO SCH (09:45)
[2022-06-05] MEDS ORDERED: NIFEdipine XL 30 MG TAB PO SCH (09:45)
[2022-06-05] MEDS ORDERED: Hydrochlorothiazide 25 MG TAB PO SCH (09:45)
[2022-06-05] MEDS ORDERED: Naproxen 500 MG TAB PO SCH (09:45)
[2022-06-05] MEDS ORDERED: Prochlorperazine Edisylate 10 MG in Sodium Chloride 0.9% 50 ML IVPB SCH (10:00)
[2022-06-05] MEDS ORDERED: NIFEdipine XL 60 MG TAB PO SCH (10:00)
[2022-06-05 16:17] VITALS: BP 132/75; TEMP 99.2
[2022-06-06] MEDS ORDERED: Lorazepam 0.5 MG TAB PO PRN (04:49)
[2022-06-06] MEDS ORDERED: NIFEdipine XL 60 MG TAB PO SCH (09:00)
[2022-06-06] MEDS ORDERED: Hydrochlorothiazide 25 MG TAB PO SCH (09:00)
== END 2022-06-05 16:45 ==
LOC: ERS 21:36 → ERHOLD 06-03 00:05 → 2SW 06-03 15:09
PROVIDERS: ADMIT Hospitalist; ATTEND Hospitalist
DX: G93.41 Metabolic encephalopathy (principal); G43.909 Migraine, unspecified, not intractable, without status migrainosus; I13.0 Hypertensive heart and chronic kidney disease with heart failure and stage 1 through stage 4 chronic kidney disease, or unspecified chronic kidney disease; N18.9 Chronic kidney disease, unspecified; I50.9 Heart failure, unspecified; D63.1 Anemia in chronic kidney disease; R53.81 Other malaise; F10.10 Alcohol abuse, uncomplicated; J44.9 Chronic obstructive pulmonary disease, unspecified; I48.91 Unspecified atrial fibrillation; E78.5 Hyperlipidemia, unspecified; I25.2 Old myocardial infarction; I25.10 Atherosclerotic heart disease of native coronary artery without angina pectoris; F12.10 Cannabis abuse, uncomplicated; Z79.02 Long term (current) use of antithrombotics/antiplatelets; Z79.2 Long term (current) use of antibiotics; Z79.82 Long term (current) use of aspirin; Z79.890 Hormone replacement therapy; Z79.899 Other long term (current) drug therapy; Z88.8 Allergy status to other drugs, medicaments and biological substances; Z95.5 Presence of coronary angioplasty implant and graft; Z95.810 Presence of automatic (implantable) cardiac defibrillator; Z20.822 Contact with and (suspected) exposure to COVID-19; Y90.0 Blood alcohol level of less than 20 mg/100 ml
CPT/HCPCS: 70450; 71045; 80048 ×2; 80306; 80307; 82140; 82607; 82728; 83540; 83550; 83605; 83735; 84100; 84484; 85025 ×2; 87040; 87077; 87086; 87186; 93005; 96361; 96372 ×3; 96374; 96375 ×2; 97116; 97535; 99285; G0378 ×4; U0002; 36415; 80053; 81003; 81015; 84443; J0780; J1650; J2916; J3411; J3475; J7042; J7050

== ENCOUNTER 2022-07-20 14:48 | Emergency (ER) | payer MEDICARE, BC ==
[2022-07-20 15:13] LABS: #Lymphocytes 1.9 thou/uL (1.20-3.40); #Monocytes 0.9 thou/uL (0.11-0.59); #Neutrophils 12.8 thou/uL (1.40-6.50); %Basophils 0.3 % (0.0-1.0); %Eosinophils 0.1 % (0.0-10.0); %Lymphocytes 12.3 % (21.0-51.0); %Monocytes 5.9 % (0.0-10.0); %Neutrophils 81.4 % (42.0-75.0); Mean Corpuscular HGB CONC 32.3 g/dL (32.0-36.0); Mean Corpuscular Hemoglobin 27.6 pg (27.0-31.0); Mean Corpuscular Volume 85.6 fl (78.0-98.0); Mean Platelet Volume 7.9 fL (7.4-10.4); Platelet Count 223 10x3/uL (130-400); RBC Distribution Width 17.6 % (11.5-14.5); Red Blood Cell (RBC) Count 4.34 mill/uL (4.20-5.40); White Blood Cell (WBC) Count 15.7 10x3/uL (4.8-10.8)
[2022-07-20 15:35] LABS: ALT (SGPT) 10 U/L (8-55); AST (SGOT) 20 U/L (5-34); Albumin 4.7 g/dL (3.4-4.8); Alkaline Phosphatase 113 U/L (40-110); Anion Gap 17 mmol/L (10-20); BUN (Urea Nitrogen) 34 mg/dL (9.8-20.1); Bilirubin, Total 0.4 mg/dL (0.2-1.2); Calc. Creatinine Clearance 0 mL/min (70-130); Calcium 11.1 mg/dL (7.8-10.44); Carbon Dioxide 20 mmol/L (23-31); Chloride 101 mmol/L (98-107); Estimated GFR 54; Glucose 169 mg/dL (80-115); Protein, Total 7.7 g/dL (5.8-8.1); Sodium 134 mmol/L (136-145)
[2022-07-20] MEDS ORDERED: traMADol HCl 50 MG TAB ONE (16:35)
== END 2022-07-20 17:06 | disposition home or self-care (01) ==
LOC: ERS 14:48
DX: R55 Syncope and collapse (principal); D72.829 Elevated white blood cell count, unspecified; I11.0 Hypertensive heart disease with heart failure; I50.9 Heart failure, unspecified; J44.9 Chronic obstructive pulmonary disease, unspecified; E78.5 Hyperlipidemia, unspecified
CPT/HCPCS: 36415; 70450; 71045; 80053; 83605; 84443; 85025; 93005

== ENCOUNTER 2022-08-02 19:19 | Inpatient (IN) | payer MEDICARE, BC ==
[2022-08-02 20:32] LABS: #Eosinphils 0.2 thou/uL (0.0-0.7); #Lymphocytes 1.4 thou/uL (1.20-3.40); #Monocytes 0.7 thou/uL (0.11-0.59); #Neutrophils 5.7 thou/uL (1.40-6.50); %Basophils 0.4 % (0.0-1.0); %Eosinophils 2.2 % (0.0-10.0); %Lymphocytes 17.6 % (21.0-51.0); %Monocytes 8.8 % (0.0-10.0); %Neutrophils 71.1 % (42.0-75.0); Hemoglobin 7.8 g/dL (12.0-16.0); Mean Corpuscular HGB CONC 33.9 g/dL (32.0-36.0); Mean Corpuscular Hemoglobin 28.1 pg (27.0-31.0); Mean Corpuscular Volume 82.8 fl (78.0-98.0); Mean Platelet Volume 7.6 fL (7.4-10.4); Platelet Count 137 10x3/uL (130-400); Red Blood Cell (RBC) Count 2.78 mill/uL (4.20-5.40)
[2022-08-02 20:44] LABS: PTT 40.1 sec (22.9-36.1)
[2022-08-02] MEDS ORDERED: Acetaminophen 500 MG TAB ONE (20:48)
[2022-08-02 20:52] LABS: ALT (SGPT) 17 U/L (8-55); AST (SGOT) 24 U/L (5-34); Albumin 4.1 g/dL (3.4-4.8); Alkaline Phosphatase 124 U/L (40-110); Anion Gap 17 mmol/L (10-20); BUN (Urea Nitrogen) 38 mg/dL (9.8-20.1); Bilirubin, Total 0.3 mg/dL (0.2-1.2); CK (CPK) 122 U/L (29-168); Calc. Creatinine Clearance 0 mL/min (70-130); Calcium 9.5 mg/dL (7.8-10.44); Carbon Dioxide 17 mmol/L (23-31); Chloride 99 mmol/L (98-107); Estimated GFR 21; Globulin 2.4 g/dL (2.4-3.5); Glucose 62 mg/dL (80-115); Lipase 24 U/L (8-78); Protein, Total 6.5 g/dL (5.8-8.1); Sodium 128 mmol/L (136-145)
[2022-08-02 21:23] LABS: Bacteria/HPF 2+ HPF (None Seen); Bilirubin Negative (Negative); Blood, Urine Negative (Negative); Clarity Turbid (Clear); Glucose, Urine (Dipstick) Normal (Negative); Ketone, Urine Negative (Negative); Leukocyte 500 Leu/uL (Negative); Nitrite 1+ (Negative); Protein, Urine (Dipstick) Negative (Neg-Trace); RBC/HPF 0-3 HPF (0-3); Specific Gravity, Urine 1.011 (1.002-1.036); Urobilinogen Normal mg/dL (Less than 2); WBC/HPF 21-50 HPF (0-3)
[2022-08-02] MEDS ORDERED: cefTRIAXone (ROCEPHIN) 1 GM VIAL ONE (22:19)
[2022-08-02] MEDS ORDERED: Albuterol 200 PUFF (6.7GM INHALER) INH PRN (22:38)
[2022-08-02] MEDS ORDERED: Lactated Ringer's 1,000 ML IV SCH (22:45)
[2022-08-02] MEDS ORDERED: Lactated Ringer's 500 ML IV SCH (22:45)
[2022-08-02] MEDS ORDERED: Acetaminophen 325 MG TAB PO PRN (22:53)
[2022-08-02] MEDS ORDERED: Senokot S 8.6-50 MG TAB PO PRN (22:53)
[2022-08-02 23:28] LABS: Magnesium 2.1 mg/dL (1.6-2.6)
[2022-08-02] MEDS ORDERED: Sodium Bicarb 50 MEQ/50 ML VIAL IVP SCH (23:30)
[2022-08-03 01:59] VITALS: BMI 29.0
[2022-08-03 04:59] LABS: #Eosinphils 0.1 thou/uL (0.0-0.7); #Lymphocytes 0.9 thou/uL (1.20-3.40); #Monocytes 0.5 thou/uL (0.11-0.59); #Neutrophils 6.6 thou/uL (1.40-6.50); %Basophils 0.2 % (0.0-1.0); %Eosinophils 0.9 % (0.0-10.0); %Lymphocytes 11.4 % (21.0-51.0); %Monocytes 5.8 % (0.0-10.0); %Neutrophils 81.7 % (42.0-75.0); Hemoglobin 7.9 g/dL (12.0-16.0); Mean Corpuscular HGB CONC 33.5 g/dL (32.0-36.0); Mean Corpuscular Hemoglobin 28.1 pg (27.0-31.0); Mean Corpuscular Volume 83.8 fl (78.0-98.0); Mean Platelet Volume 7.8 fL (7.4-10.4); Platelet Count 131 10x3/uL (130-400); RBC Distribution Width 16.9 % (11.5-14.5); Red Blood Cell (RBC) Count 2.79 mill/uL (4.20-5.40); White Blood Cell (WBC) Count 8.1 10x3/uL (4.8-10.8)
[2022-08-03 05:17] LABS: Anion Gap 16 mmol/L (10-20); BUN (Urea Nitrogen) 39 mg/dL (9.8-20.1); Calc. Creatinine Clearance 23 mL/min (70-130); Calcium 9.6 mg/dL (7.8-10.44); Carbon Dioxide 19 mmol/L (23-31); Chloride 99 mmol/L (98-107); Estimated GFR 22; Glucose 99 mg/dL (80-115); Potassium 4.6 mmol/L (3.5-5.1); Sodium 129 mmol/L (136-145)
[2022-08-03] MEDS: NIFEdipine XL 60 MG TAB PO SCH (08:38)
[2022-08-03] MEDS: Ivabradine 5 MG TAB PO SCH ×2 (08:38→20:15)
[2022-08-03] MEDS: Ascorbic Acid 500 mg Chewable Tablet PO SCH (08:38)
[2022-08-03] MEDS: Rosuvastatin 10 MG TAB PO SCH (08:39)
[2022-08-03] MEDS: Clopidogrel Bisulfate 75 MG TAB PO SCH (08:39)
[2022-08-03] MEDS: Cholecalciferol 1,000 UNITS (25 MCG) TAB PO SCH (08:39)
[2022-08-03] MEDS: Allopurinol 300 MG TAB PO SCH (08:39)
[2022-08-03] MEDS: Spironolactone 25 MG TAB PO SCH (08:39)
[2022-08-03] MEDS: Levothyroxine Sodium 88 MCG TAB PO SCH (08:40)
[2022-08-03] MEDS: Escitalopram Oxalate 10 mg Tablet PO SCH (08:40)
[2022-08-03] MEDS: Carvedilol 25 MG TAB PO SCH ×2 (08:40→16:37)
[2022-08-03] MEDS: Ferrous Sulfate 325 MG TAB PO SCH (08:40)
[2022-08-03] MEDS: Furosemide 40 MG TAB PO SCH (08:40)
[2022-08-03] MEDS ORDERED: Famotidine 20 MG TAB PO SCH (09:00)
[2022-08-03] MEDS ORDERED: Meropenem 500 MG in Sodium Chloride 0.9% 100 ML IVPB SCH (12:15)
[2022-08-03] MEDS ORDERED: Meropenem 1 GM in Sodium Chloride 0.9% 100 ML IVPB SCH (12:30)
[2022-08-03] MEDS: HYDROcodone/Acetaminophen 5/325 mg Tablet PO PRN (20:15)
[2022-08-03] MEDS: Meropenem 500 MG in Sodium Chloride 0.9% 100 ML IVPB SCH (20:15)
[2022-08-03] MEDS ORDERED: Lidocaine 4% Patch TD SCH (21:00)
[2022-08-03] MEDS ORDERED: Morphine 2 MG/ML VIAL SLOW IVP SCH (22:45)
[2022-08-04] MEDS: HYDROcodone/Acetaminophen 5/325 mg Tablet PO PRN ×2 (02:18→09:09)
[2022-08-04 04:28] LABS: #Eosinphils 0.1 thou/uL (0.0-0.7); #Monocytes 0.6 thou/uL (0.11-0.59); #Neutrophils 3.9 thou/uL (1.40-6.50); %Basophils 0.4 % (0.0-1.0); %Eosinophils 2.6 % (0.0-10.0); %Lymphocytes 18.5 % (21.0-51.0); %Monocytes 9.9 % (0.0-10.0); %Neutrophils 68.7 % (42.0-75.0); Hemoglobin 7.8 g/dL (12.0-16.0); Mean Corpuscular HGB CONC 32.6 g/dL (32.0-36.0); Mean Corpuscular Hemoglobin 27.6 pg (27.0-31.0); Mean Corpuscular Volume 84.6 fl (78.0-98.0); Mean Platelet Volume 7.9 fL (7.4-10.4); Platelet Count 128 10x3/uL (130-400); RBC Distribution Width 17.6 % (11.5-14.5); Red Blood Cell (RBC) Count 2.82 mill/uL (4.20-5.40); White Blood Cell (WBC) Count 5.6 10x3/uL (4.8-10.8)
[2022-08-04 04:44] LABS: Anion Gap 18 mmol/L (10-20); BUN (Urea Nitrogen) 31 mg/dL (9.8-20.1); Calc. Creatinine Clearance 34 mL/min (70-130); Calcium 9.7 mg/dL (7.8-10.44); Carbon Dioxide 17 mmol/L (23-31); Chloride 101 mmol/L (98-107); Estimated GFR 34; Glucose 71 mg/dL (80-115); Potassium 4.3 mmol/L (3.5-5.1); Sodium 132 mmol/L (136-145)
[2022-08-04] MEDS ORDERED: Diclofenac 1% 100 GM GEL TP PRN (05:56)
[2022-08-04] MEDS ORDERED: Transdermal Patch Removal TOP SCH (09:00)
[2022-08-04] MEDS ORDERED: Famotidine 20 MG TAB PO SCH (09:00)
[2022-08-04] MEDS: NIFEdipine XL 60 MG TAB PO SCH (09:07)
[2022-08-04] MEDS: Clopidogrel Bisulfate 75 MG TAB PO SCH (09:07)
[2022-08-04] MEDS: Furosemide 40 MG TAB PO SCH (09:07)
[2022-08-04] MEDS: Carvedilol 25 MG TAB PO SCH (09:07)
[2022-08-04] MEDS: Allopurinol 300 MG TAB PO SCH (09:07)
[2022-08-04] MEDS: Ascorbic Acid 500 mg Chewable Tablet PO SCH (09:07)
[2022-08-04] MEDS: Cholecalciferol 1,000 UNITS (25 MCG) TAB PO SCH (09:07)
[2022-08-04] MEDS: Spironolactone 25 MG TAB PO SCH (09:08)
[2022-08-04] MEDS: Levothyroxine Sodium 88 MCG TAB PO SCH (09:08)
[2022-08-04] MEDS: Escitalopram Oxalate 10 mg Tablet PO SCH (09:08)
[2022-08-04] MEDS: Ferrous Sulfate 325 MG TAB PO SCH (09:08)
[2022-08-04] MEDS: Rosuvastatin 10 MG TAB PO SCH (09:08)
[2022-08-04] MEDS: Meropenem 500 MG in Sodium Chloride 0.9% 100 ML IVPB SCH (09:10)
[2022-08-04] MEDS: Ivabradine 5 MG TAB PO SCH (09:10)
[2022-08-04] MEDS ORDERED: HYDROcodone/Acetaminophen 5/325 mg Tablet PO PRN (09:56)
[2022-08-04 12:03] VITALS: BP 144/74; TEMP 98.1
[2022-08-04] MEDS ORDERED: Morphine 2 MG/ML VIAL SLOW IVP SCH (12:15)
== END 2022-08-04 14:00 | disposition home or self-care (01) | DRG 683 ==
LOC: ERS 19:19 → 2NO 22:02
PROVIDERS: ADMIT Student in an Organized Health Care Education/Training Program; ATTEND Hospitalist
DX: N17.9 Acute kidney failure, unspecified (principal); E87.1 Hypo-osmolality and hyponatremia; N39.0 Urinary tract infection, site not specified; I50.32 Chronic diastolic (congestive) heart failure; I13.0 Hypertensive heart and chronic kidney disease with heart failure and stage 1 through stage 4 chronic kidney disease, or unspecified chronic kidney disease; M19.90 Unspecified osteoarthritis, unspecified site; E78.5 Hyperlipidemia, unspecified; F32.A Depression, unspecified; I25.10 Atherosclerotic heart disease of native coronary artery without angina pectoris; R29.6 Repeated falls; M10.9 Gout, unspecified; E86.0 Dehydration; D63.1 Anemia in chronic kidney disease; J44.9 Chronic obstructive pulmonary disease, unspecified; N18.4 Chronic kidney disease, stage 4 (severe); I25.2 Old myocardial infarction; Z95.0 Presence of cardiac pacemaker; Z90.49 Acquired absence of other specified parts of digestive tract; Z90.710 Acquired absence of both cervix and uterus; Z88.8 Allergy status to other drugs, medicaments and biological substances; Z79.82 Long term (current) use of aspirin; Z79.51 Long term (current) use of inhaled steroids; Z79.890 Hormone replacement therapy; Z79.899 Other long term (current) drug therapy
CPT/HCPCS: 36415; 70450; 72125; 72170; 80048; 80053; 81003; 81015; 82550; 83690; 83735; 84484; 85025; 85610; 85730; 87077; 87086; 87186; 93005; 96365; J0696; J1956; J2185; J2272; J3490; J7120

== ENCOUNTER 2022-11-20 09:13 | Outpatient (CLI) | payer MEDICARE, BC | END 2022-11-20 09:14 | disposition home or self-care (01) | LOC: BICMAMMO 09:13 | PROVIDERS: ATTEND Internal Medicine | DX: R92.8 Other abnormal and inconclusive findings on diagnostic imaging of breast (principal) | CPT/HCPCS: 76642; 77066; G0279 ==

== ENCOUNTER 2023-04-09 12:25 | Inpatient (IN) | payer MEDICARE, BC ==
[2023-04-09 13:04] LABS: #Eosinphils 0.1 thou/uL (0.0-0.7); #Monocytes 0.4 thou/uL (0.11-0.59); #Neutrophils 10.1 thou/uL (1.40-6.50); %Basophils 0.2 % (0.0-1.0); %Eosinophils 0.5 % (0.0-10.0); %Lymphocytes 6.4 % (21.0-51.0); %Monocytes 3.3 % (0.0-10.0); %Neutrophils 89.2 % (42.0-75.0); Hematocrit 34.2 % (36.0-47.0); Hemoglobin 9.9 g/dL (12.0-16.0); Mean Corpuscular HGB CONC 28.9 g/dL (32.0-36.0); Mean Corpuscular Hemoglobin 23.3 pg (27.0-31.0); Mean Corpuscular Volume 80.5 fl (78.0-98.0); Mean Platelet Volume 9.3 fL (7.4-10.4); Platelet Count 158 10x3/uL (130-400); RBC Distribution Width 19.5 % (11.5-14.5); Red Blood Cell (RBC) Count 4.25 mill/uL (4.20-5.40); White Blood Cell (WBC) Count 11.4 10x3/uL (4.8-10.8)
[2023-04-09 13:37] LABS: Troponin I 0.035 ng/mL (< 0.028)
[2023-04-09 13:53] LABS: Anisocytosis SLIGHT = 6-15 cells (100X) (0-5/hpf); Hypochromia SLIGHT = 6-15 cells (100X) (0-5/hpf); Ovalocytes SLIGHT = 2-5 cells (100X) (0-1/hpf); Platelet Adequacy Comment Platelets Normal; Polychromasia SLIGHT = 2-3 cells (100X) (0-2/hpf)
[2023-04-09 14:11] LABS: AST (SGOT) 23 U/L (5-34); Bilirubin, Total 0.3 mg/dL (0.2-1.2); Calcium 8.9 mg/dL (7.8-10.44); Carbon Dioxide 17 mmol/L (23-31); Chloride 111 mmol/L (98-107); Potassium 4.8 mmol/L (3.5-5.1); Protein, Total 7.2 g/dL (5.8-8.1); Sodium 142 mmol/L (136-145)
[2023-04-09] MEDS ORDERED: Furosemide 40 MG (4 mL) VIAL ONE (14:21)
[2023-04-09 14:44] LABS: Albumin 4.4 g/dL (3.4-4.8); Globulin 2.8 g/dL (2.4-3.5)
[2023-04-09 14:46] LABS: Glucose 250 mg/dL (80-115)
[2023-04-09 14:48] LABS: Anion Gap 21 mmol/L (10-20)
[2023-04-09 14:49] LABS: Alkaline Phosphatase 180 U/L (40-110)
[2023-04-09 14:50] LABS: BUN (Urea Nitrogen) 25 mg/dL (9.8-20.1); Calc. Creatinine Clearance 0 mL/min (70-130); Estimated GFR 38
[2023-04-09 14:52] LABS: ALT (SGPT) 7 U/L (8-55); Lipase 24 U/L (8-78)
[2023-04-09 16:24] LABS: Actual Bicarbonate (HCO3v) 19.4 mEq/L (22-28); Base Excess -6.3 mEq/L (-2.0 to +3.0); Calcium, Ionized (venous) 1.23 mmol/L (1.16-1.32); Chloride (VBG) 106 mmol/L (98-106); Hematocrit-VBG 29 % (36.0-47.0); Potassium (VBG) 4.29 mmol/L (3.70-5.30); Sodium 138 mmol/L (133-146); pH (venous) 7.314 (7.32-7.43)
[2023-04-09 16:44] LABS: Troponin I 0.105 ng/mL (< 0.028)
[2023-04-09] MEDS ORDERED: Albuterol 1.25 MG (3 mL) NEB NEB PRN (17:36)
[2023-04-09 17:38] VITALS: BMI 30.4
[2023-04-09] MEDS ORDERED: Electrolyte Replacement Protocol 1 EACH FS SCH (18:00)
[2023-04-09] MEDS ORDERED: Electrolyte Replacement Protocol FS PRN (18:00)
[2023-04-09] MEDS: Gabapentin 300 MG CAP PO SCH ×2 (18:22→20:11)
[2023-04-09] MEDS: Carvedilol 25 MG TAB PO SCH (18:26)
[2023-04-09] MEDS: methylPREDNISolone Sod Succ 40 MG VIAL IVP SCH ×2 (18:26→23:31)
[2023-04-09] MEDS: cefTRIAXone\\ROCEPHIN 1 GM in Sodium Chloride 0.9% 100 ML IVPB SCH (18:27)
[2023-04-09] MEDS: Ipratropium/Albuterol 3 ML NEB NEB SCH ×2 (19:09→23:25)
[2023-04-09] MEDS: Ivabradine 5 MG TAB PO SCH (20:12)
[2023-04-10] MEDS: traMADol HCl 50 MG TAB PO PRN (00:59)
[2023-04-10] MEDS: Ipratropium/Albuterol 3 ML NEB NEB SCH ×6 (02:25→21:53)
[2023-04-10 03:29] LABS: #Monocytes 0.1 thou/uL (0.11-0.59); #Neutrophils 5.2 thou/uL (1.40-6.50); %Lymphocytes 6.9 % (21.0-51.0); %Monocytes 1.6 % (0.0-10.0); Hematocrit 28.8 % (36.0-47.0); Hemoglobin 8.4 g/dL (12.0-16.0); Mean Corpuscular HGB CONC 29.2 g/dL (32.0-36.0); Mean Corpuscular Hemoglobin 23.1 pg (27.0-31.0); Mean Corpuscular Volume 79.3 fl (78.0-98.0); Platelet Count 137 10x3/uL (130-400); Red Blood Cell (RBC) Count 3.63 mill/uL (4.20-5.40); White Blood Cell (WBC) Count 5.8 10x3/uL (4.8-10.8)
[2023-04-10 03:55] LABS: Anion Gap 15 mmol/L (10-20); BUN (Urea Nitrogen) 27 mg/dL (9.8-20.1); Calc. Creatinine Clearance 47 mL/min (70-130); Calcium 9.1 mg/dL (7.8-10.44); Carbon Dioxide 18 mmol/L (23-31); Chloride 108 mmol/L (98-107); Estimated GFR 48; Glucose 228 mg/dL (80-115); Potassium 4.8 mmol/L (3.5-5.1); Sodium 136 mmol/L (136-145)
[2023-04-10] MEDS ORDERED: Acetaminophen 325 MG TAB PO PRN (04:47)
[2023-04-10] MEDS: Furosemide 40 MG (4 mL) VIAL SLOW IVP SCH ×2 (05:01→12:20)
[2023-04-10] MEDS: Levothyroxine Sodium 88 MCG TAB PO SCH (05:14)
[2023-04-10] MEDS: HYDROcodone/Acetaminophen 7.5/325 mg Tablet PO PRN ×5 (05:14→22:03)
[2023-04-10] MEDS: methylPREDNISolone Sod Succ 40 MG VIAL IVP SCH ×4 (05:15→23:33)
[2023-04-10] MEDS: Spironolactone 25 MG TAB PO SCH (08:54)
[2023-04-10] MEDS: Carvedilol 25 MG TAB PO SCH ×2 (08:54→17:15)
[2023-04-10] MEDS: Aspirin 81 mg Enteric Coated Tablet PO SCH (08:55)
[2023-04-10] MEDS: Escitalopram Oxalate 10 mg Tablet PO SCH (08:55)
[2023-04-10] MEDS: Ivabradine 5 MG TAB PO SCH ×2 (08:55→21:12)
[2023-04-10] MEDS: Gabapentin 300 MG CAP PO SCH ×3 (08:55→21:12)
[2023-04-10] MEDS: Isosorbide Mononitrate 30 MG ER.TAB PO SCH (08:55)
[2023-04-10] MEDS: NIFEdipine XL 60 MG ER.TAB PO SCH (08:56)
[2023-04-10] MEDS: Pantoprazole 40 MG VIAL IVP SCH (08:57)
[2023-04-10] MEDS: Rosuvastatin 10 MG TAB PO SCH (08:57)
[2023-04-10] MEDS ORDERED: FLU VACC QS2023(65UP)/MF59C/PF 60 MCG/0.5 ML SYRINGE IM ONE (09:00)
[2023-04-10] MEDS: cefTRIAXone\\ROCEPHIN 1 GM in Sodium Chloride 0.9% 100 ML IVPB SCH (14:11)
[2023-04-11] MEDS: HYDROcodone/Acetaminophen 7.5/325 mg Tablet PO PRN ×2 (01:39→09:59)
[2023-04-11] MEDS: Ipratropium/Albuterol 3 ML NEB NEB SCH ×3 (01:59→10:37)
[2023-04-11] MEDS: methylPREDNISolone Sod Succ 40 MG VIAL IVP SCH (05:10)
[2023-04-11] MEDS: Levothyroxine Sodium 88 MCG TAB PO SCH (05:11)
[2023-04-11] MEDS: Furosemide 40 MG (4 mL) VIAL SLOW IVP SCH (05:11)
[2023-04-11] MEDS: traMADol HCl 50 MG TAB PO PRN (06:08)
[2023-04-11] MEDS: NIFEdipine XL 60 MG ER.TAB PO SCH (09:23)
[2023-04-11] MEDS: Spironolactone 25 MG TAB PO SCH (09:24)
[2023-04-11] MEDS: Ivabradine 5 MG TAB PO SCH (09:24)
[2023-04-11] MEDS: Rosuvastatin 10 MG TAB PO SCH (09:25)
[2023-04-11] MEDS: Gabapentin 300 MG CAP PO SCH (09:25)
[2023-04-11] MEDS: Isosorbide Mononitrate 30 MG ER.TAB PO SCH (09:25)
[2023-04-11] MEDS: Aspirin 81 mg Enteric Coated Tablet PO SCH (09:26)
[2023-04-11] MEDS: Escitalopram Oxalate 10 mg Tablet PO SCH (09:26)
[2023-04-11] MEDS: Pantoprazole 40 MG VIAL IVP SCH (09:27)
[2023-04-11] MEDS: Carvedilol 25 MG TAB PO SCH (09:27)
[2023-04-11] MEDS ORDERED: Cefdinir 300 MG CAP PO SCH ×2 (09:45→21:00)
[2023-04-11 10:16] LABS: #Monocytes 0.2 thou/uL (0.11-0.59); #Neutrophils 10.7 thou/uL (1.40-6.50); %Lymphocytes 4.6 % (21.0-51.0); %Neutrophils 93.1 % (42.0-75.0); Hematocrit 30.3 % (36.0-47.0); Hemoglobin 8.6 g/dL (12.0-16.0); Mean Corpuscular HGB CONC 28.4 g/dL (32.0-36.0); Mean Corpuscular Hemoglobin 22.3 pg (27.0-31.0); Mean Corpuscular Volume 78.7 fl (78.0-98.0); Mean Platelet Volume 9.5 fL (7.4-10.4); Platelet Count 152 10x3/uL (130-400); Red Blood Cell (RBC) Count 3.85 mill/uL (4.20-5.40); White Blood Cell (WBC) Count 11.5 10x3/uL (4.8-10.8)
[2023-04-11 10:40] LABS: Anion Gap 14 mmol/L (10-20); BUN (Urea Nitrogen) 37 mg/dL (9.8-20.1); Calc. Creatinine Clearance 51 mL/min (70-130); Calcium 9.3 mg/dL (7.8-10.44); Carbon Dioxide 22 mmol/L (23-31); Chloride 99 mmol/L (98-107); Estimated GFR 56; Glucose 181 mg/dL (80-115); Potassium 4.1 mmol/L (3.5-5.1); Sodium 131 mmol/L (136-145)
[2023-04-11 11:27] VITALS: TEMP 99
[2023-04-12] MEDS ORDERED: predniSONE 20 MG TAB PO SCH (08:00)
== END 2023-04-11 12:55 | disposition home or self-care (01) | DRG 280 ==
LOC: ERS 12:25 → IMCU/EMU 14:28
PROVIDERS: ADMIT Internal Medicine; ATTEND Internal Medicine
PROC: 4A043R1 Measurement of Venous Saturation, Peripheral, Percutaneous Approach (ICD-10-PCS; principal; 2023-04-09)
PROC: 5A09357 Assistance with Respiratory Ventilation, Less than 24 Consecutive Hours, Continuous Positive Airway Pressure (ICD-10-PCS; 2023-04-09)
DX: I13.0 Hypertensive heart and chronic kidney disease with heart failure and stage 1 through stage 4 chronic kidney disease, or unspecified chronic kidney disease (principal); G93.41 Metabolic encephalopathy; I21.A1 Myocardial infarction type 2; I50.23 Acute on chronic systolic (congestive) heart failure; J96.01 Acute respiratory failure with hypoxia; J96.02 Acute respiratory failure with hypercapnia; J44.1 Chronic obstructive pulmonary disease with (acute) exacerbation; E87.20 Acidosis, unspecified; M19.90 Unspecified osteoarthritis, unspecified site; I48.91 Unspecified atrial fibrillation; E78.5 Hyperlipidemia, unspecified; I25.2 Old myocardial infarction; Z95.5 Presence of coronary angioplasty implant and graft; Z98.890 Other specified postprocedural states; F32.A Depression, unspecified; F17.290 Nicotine dependence, other tobacco product, uncomplicated; Z88.8 Allergy status to other drugs, medicaments and biological substances; Z79.899 Other long term (current) drug therapy; Z96.651 Presence of right artificial knee joint; M10.9 Gout, unspecified; Z90.49 Acquired absence of other specified parts of digestive tract; Z90.710 Acquired absence of both cervix and uterus; N18.30 Chronic kidney disease, stage 3 unspecified; D63.1 Anemia in chronic kidney disease
CPT/HCPCS: 36415; 71045; 80048; 80053; 82805; 83605; 83690; 83880; 84484; 85025; 87040; 93005; 94640; 94660; 94760; C9113; J0696; J1940; J2920; J3490; J7620

== ENCOUNTER 2023-07-05 15:30 | Inpatient (IN) | payer MEDICARE, BC ==
[2023-07-05 16:01] LABS: Hematocrit 26.2 % (36.0-47.0); Hemoglobin 7.4 g/dL (12.0-16.0); Mean Corpuscular HGB CONC 28.2 g/dL (32.0-36.0); Mean Corpuscular Volume 81.4 fL (78.0-98.0); Platelet Count 240 10x3/uL (130-400); RBC Distribution Width 18.2 % (11.5-14.5); Red Blood Cell (RBC) Count 3.22 mill/uL (4.20-5.40)
[2023-07-05] MEDS ORDERED: Morphine 4 MG/ML VIAL ONE (16:13)
[2023-07-05] MEDS ORDERED: Ondansetron PF 4 MG/2 ML Vial ONE (16:13)
[2023-07-05 16:22] LABS: Anisocytosis SLIGHT = 6-15 cells HPF (0-5); Hypochromia SLIGHT = 6-15 cells HPF (0-5); Ovalocytes SLIGHT = 2-5 cells HPF (0-1); Platelet Adequacy Comment Platelets Normal; Poikilocytosis SLIGHT = 6-15 cells HPF (0-5); Polychromasia SLIGHT = 2-3 cells HPF (0-2); Tear Drops SLIGHT = 2-5 cells HPF (0-1)
[2023-07-05 16:29] LABS: ALT (SGPT) 10 U/L (8-55); AST (SGOT) 25 U/L (5-34); Albumin 4.1 g/dL (3.4-4.8); Alkaline Phosphatase 155 U/L (40-110); Anion Gap 17 mmol/L (10-20); BUN (Urea Nitrogen) 70 mg/dL (9.8-20.1); Bilirubin, Total 0.2 mg/dL (0.2-1.2); Calc. Creatinine Clearance 0 mL/min (70-130); Calcium 9.7 mg/dL (7.8-10.44); Carbon Dioxide 14 mmol/L (23-31); Chloride 105 mmol/L (98-107); Estimated GFR 23; Globulin 2.7 g/dL (2.4-3.5); Glucose 134 mg/dL (80-115); Potassium 4.2 mmol/L (3.5-5.1); Protein, Total 6.8 g/dL (5.8-8.1); Sodium 132 mmol/L (136-145)
[2023-07-05 16:30] LABS: Acetaminophen 17 mcg/mL (10.0-30.0); Alcohol Less than 10.0 mg/dL (Less than 10); Lipase 586 U/L (8-78); Magnesium 1.9 mg/dL (1.6-2.6); Salicylate Less than 8.0 mg/dL (15.0-30.0)
[2023-07-05 16:34] LABS: Troponin I 0.028 ng/mL (< 0.028)
[2023-07-05 16:54] LABS: Lymphocytes 20 % (21-51); Macrocytosis SLIGHT = 6-15 cells HPF (0-5); Monocytes 3 % (0-10); Neutrophil 77 % (42-75); Nucleated RBC (Manual Ct) 2 % (0)
[2023-07-05 17:34] LABS: Bilirubin Negative (Negative); Blood, Urine Negative (Negative); CAUTI Indications for Culture Pelvic or flank pain; Clarity Clear (Clear); Glucose, Urine (Dipstick) Normal (Negative); Ketone, Urine Negative (Negative); Leukocyte 500 Leu/uL (Negative); Nitrite Negative (Negative); Protein, Urine (Dipstick) Negative (Neg-Trace); RBC/HPF 0-3 HPF (0-3); Specific Gravity, Urine 1.013 (1.002-1.036); Urobilinogen Normal mg/dL (Less than 2)
[2023-07-05 17:35] LABS: Amphetamine Not Detected (NotDetected); Barbiturates Screen Not Detected (NotDetected); Benzodiazepine Screen Not Detected (NotDetected); Cocaine Metabolite Screen Not Detected (NotDetected); Methadone Not Detected (NotDetected); Methamphetamine Not Detected (NotDetected); Opiate Screen Detected (NotDetected); Oxycodone Screen Not Detected (NotDetected); Phencyclidine (PCP) Not Detected (NotDetected); THC/Cannabinoid Screen Not Detected (NotDetected); Tricyclic Screen Not Detected (NotDetected)
[2023-07-05 17:50] LABS: Bacteria/HPF Rare-Few HPF (None Seen)
[2023-07-05 17:51] LABS: Urine Culture Reflex No No
[2023-07-05] MEDS ORDERED: Senokot S 8.6-50 MG TAB PO PRN (17:56)
[2023-07-05 18:46] VITALS: BMI 25.0
[2023-07-05] MEDS: Aspirin 81 mg Enteric Coated Tablet PO SCH ×2 (19:09→21:10)
[2023-07-05] MEDS: Sodium Chloride 0.9% 1,000 ML IV SCH (19:10)
[2023-07-05] MEDS: Morphine 2 MG/ML VIAL SLOW IVP PRN (19:18)
[2023-07-05] MEDS: traMADol HCl 50 MG TAB PO SCH (21:09)
[2023-07-05] MEDS: Gabapentin 300 MG CAP PO SCH (21:09)
[2023-07-05] MEDS: Apixaban 2.5 MG TAB PO SCH (21:09)
[2023-07-05] MEDS: Amiodarone 200 MG TAB PO SCH (21:10)
[2023-07-05] MEDS: Ondansetron PF 4 MG/2 ML Vial IVP PRN (21:11)
[2023-07-05] MEDS: Ivabradine 5 MG TAB PO SCH (21:11)
[2023-07-05] MEDS: Colestipol 1 GM TAB PO SCH (21:11)
[2023-07-05] MEDS: HYDROcodone/Acetaminophen 5/325 mg Tablet PO PRN (23:23)
[2023-07-06] MEDS: Sodium Bicarb 50 MEQ/50 ML Abboject 8.4% SYRINGE IVP SCH (04:24)
[2023-07-06] MEDS: Levothyroxine Sodium 88 MCG TAB PO SCH (06:28)
[2023-07-06 06:37] LABS: #Basophils Less than 0.03 10x3/uL (0.0-0.2); %Basophils 0.2 % (0.0-1.0); %Eosinophils 0.6 % (0.0-10.0); %Lymphocytes 22.3 % (21.0-51.0); %Monocytes 5.7 % (0.0-10.0); %Neutrophils 70.8 % (42.0-75.0); Hematocrit 21.3 % (36.0-47.0); Hemoglobin 5.9 g/dL (12.0-16.0); Mean Corpuscular HGB CONC 27.7 g/dL (32.0-36.0); Mean Corpuscular Hemoglobin 22.6 pg (27.0-31.0); Mean Corpuscular Volume 81.6 fL (78.0-98.0); Mean Platelet Volume 10.1 fL (7.4-10.4); Platelet Count 164 10x3/uL (130-400); Red Blood Cell (RBC) Count 2.61 mill/uL (4.20-5.40)
[2023-07-06 06:51] LABS: Critical Call w/ Read Back NUR.LB22@0626
[2023-07-06 06:53] LABS: Anion Gap 15 mmol/L (10-20); BUN (Urea Nitrogen) 62 mg/dL (9.8-20.1); Calc. Creatinine Clearance 24 mL/min (70-130); Calcium 8.6 mg/dL (7.8-10.44); Carbon Dioxide 21 mmol/L (23-31); Chloride 108 mmol/L (98-107); Estimated GFR 27; Glucose 93 mg/dL (80-115); Potassium 3.9 mmol/L (3.5-5.1); Sodium 140 mmol/L (136-145)
[2023-07-06 07:03] LABS: Microcytosis SLIGHT = 6-15 cells HPF (0-5); Platelet Adequacy Comment Platelets Normal; Polychromasia SLIGHT = 2-3 cells HPF (0-2)
[2023-07-06] MEDS: Rosuvastatin 10 MG TAB PO SCH (08:30)
[2023-07-06] MEDS: NIFEdipine XL 60 MG ER.TAB PO SCH (08:30)
[2023-07-06] MEDS: Isosorbide Mononitrate 30 MG ER.TAB PO SCH (08:30)
[2023-07-06] MEDS: Carvedilol 25 MG TAB PO SCH (08:30)
[2023-07-06] MEDS: Clopidogrel Bisulfate 75 MG TAB PO SCH (08:30)
[2023-07-06] MEDS: Ferrous Sulfate 325 MG TAB PO SCH (08:30)
[2023-07-06] MEDS: Escitalopram Oxalate 10 mg Tablet PO SCH (08:31)
[2023-07-06] MEDS: Morphine 2 MG/ML VIAL SLOW IVP PRN (10:11)
[2023-07-06 15:10] LABS: Iron 86 ug/dL (50-170); Iron Binding Capacity, Total 328 mcg/dL (265-497)
[2023-07-06 15:31] LABS: Ferritin 27.15 ng/mL (10-291)
[2023-07-06 15:39] LABS: Thyroid Stimulating Hormone 3.2299 uIU/mL (0.35-4.94)
[2023-07-06] MEDS: Acetaminophen 325 MG TAB PO PRN (15:56)
[2023-07-07 04:28] LABS: #Basophils Less than 0.03 10x3/uL (0.0-0.2); %Basophils 0.1 % (0.0-1.0); %Eosinophils 1.3 % (0.0-10.0); %Lymphocytes 18.6 % (21.0-51.0); %Neutrophils 72.6 % (42.0-75.0); Hematocrit 24.4 % (36.0-47.0); Hemoglobin 7.1 g/dL (12.0-16.0); Mean Corpuscular HGB CONC 29.1 g/dL (32.0-36.0); Mean Corpuscular Hemoglobin 24.3 pg (27.0-31.0); Mean Corpuscular Volume 83.6 fL (78.0-98.0); Mean Platelet Volume 9.8 fL (7.4-10.4); Platelet Count 146 10x3/uL (130-400); RBC Distribution Width 16.6 % (11.5-14.5); Red Blood Cell (RBC) Count 2.92 mill/uL (4.20-5.40)
[2023-07-07 04:50] LABS: Anion Gap 14 mmol/L (10-20); BUN (Urea Nitrogen) 54 mg/dL (9.8-20.1); Calc. Creatinine Clearance 28 mL/min (70-130); Calcium 8.4 mg/dL (7.8-10.44); Carbon Dioxide 17 mmol/L (23-31); Chloride 106 mmol/L (98-107); Estimated GFR 33; Glucose 101 mg/dL (80-115); Lipase 437 U/L (8-78); Sodium 133 mmol/L (136-145)
[2023-07-07] MEDS: NIFEdipine XL 60 MG ER.TAB PO SCH (09:26)
[2023-07-07] MEDS: Carvedilol 6.25 MG TAB PO SCH (09:28)
[2023-07-07] MEDS: GoLYTELY 4,000 ml Bottle PO SCH (19:53)
[2023-07-08 07:09] LABS: Anion Gap 13 mmol/L (10-20); BUN (Urea Nitrogen) 32 mg/dL (9.8-20.1); Calc. Creatinine Clearance 41 mL/min (70-130); Calcium 9.1 mg/dL (7.8-10.44); Carbon Dioxide 20 mmol/L (23-31); Chloride 108 mmol/L (98-107); Estimated GFR 52; Glucose 82 mg/dL (80-115); Lipase 96 U/L (8-78); Sodium 137 mmol/L (136-145)
[2023-07-08 07:11] LABS: #Basophils Less than 0.03 10x3/uL (0.0-0.2); %Basophils 0.1 % (0.0-1.0); %Eosinophils 1.5 % (0.0-10.0); %Lymphocytes 18.2 % (21.0-51.0); %Monocytes 7.1 % (0.0-10.0); %Neutrophils 72.8 % (42.0-75.0); Hematocrit 25.6 % (36.0-47.0); Hemoglobin 7.4 g/dL (12.0-16.0); Mean Corpuscular HGB CONC 28.9 g/dL (32.0-36.0); Mean Corpuscular Hemoglobin 24.3 pg (27.0-31.0); Mean Corpuscular Volume 83.9 fL (78.0-98.0); Platelet Count 132 10x3/uL (130-400); RBC Distribution Width 17.2 % (11.5-14.5); Red Blood Cell (RBC) Count 3.05 mill/uL (4.20-5.40)
[2023-07-08 07:15] LABS: ALT (SGPT) 32 U/L (8-55); AST (SGOT) 49 U/L (5-34); Albumin 3.8 g/dL (3.4-4.8); Alkaline Phosphatase 209 U/L (40-110); Bilirubin, Direct 0.2 mg/dL (0.1-0.3); Bilirubin, Total 0.4 mg/dL (0.2-1.2); Protein, Total 5.7 g/dL (5.8-8.1)
[2023-07-08 07:33] LABS: Hypochromia SLIGHT = 6-15 cells HPF (0-5); Platelet Adequacy Comment Platelets Normal; Polychromasia MODERATE = 3-4 cells HPF (0-2)
[2023-07-08] MEDS ORDERED: Lidocaine 2% PF 5 ML VIAL ONE (09:25)
[2023-07-08] MEDS ORDERED: PROPOFOL 40 ML ONE (09:25)
[2023-07-08] MEDS ORDERED: Etomidate 40 MG (20 mL) VIAL ONE (09:33)
[2023-07-08] MEDS ORDERED: fentaNYL 50 mcg/mL 1 mL Vial ONE (10:05)
[2023-07-08] MEDS ORDERED: PHENYLEPHRINE-NS 100 MCG/ML 10 ML SYRINGE ONE (10:23)
[2023-07-08] MEDS ORDERED: Promethazine HCl 25 MG/ML VIAL IM PRN (10:31)
[2023-07-08] MEDS ORDERED: HYDROmorphone 2 MG/ML VIAL SLOW IVP PRN (10:31)
[2023-07-08] MEDS ORDERED: Ondansetron HCl/PF 4 MG/2 ML Vial IVP PRN (10:31)
[2023-07-08] MEDS ORDERED: Morphine Sulfate 2 MG/ML SYRINGE SLOW IVP PRN (10:31)
[2023-07-08] MEDS: Carvedilol 6.25 MG TAB PO SCH (18:44)
[2023-07-09 05:37] LABS: #Basophils Less than 0.03 10x3/uL (0.0-0.2); %Basophils 0.1 % (0.0-1.0); %Eosinophils 1.4 % (0.0-10.0); %Lymphocytes 17.5 % (21.0-51.0); %Monocytes 6.8 % (0.0-10.0); %Neutrophils 73.8 % (42.0-75.0); Hematocrit 21.6 % (36.0-47.0); Hemoglobin 6.2 g/dL (12.0-16.0); Mean Corpuscular HGB CONC 28.7 g/dL (32.0-36.0); Mean Corpuscular Hemoglobin 24.2 pg (27.0-31.0); Mean Corpuscular Volume 84.4 fL (78.0-98.0); Mean Platelet Volume 9.4 fL (7.4-10.4); Platelet Count 127 10x3/uL (130-400); RBC Distribution Width 17.3 % (11.5-14.5); Red Blood Cell (RBC) Count 2.56 mill/uL (4.20-5.40)
[2023-07-09 05:56] LABS: Anion Gap 12 mmol/L (10-20); BUN (Urea Nitrogen) 29 mg/dL (9.8-20.1); Calc. Creatinine Clearance 38 mL/min (70-130); Carbon Dioxide 19 mmol/L (23-31); Chloride 108 mmol/L (98-107); Estimated GFR 47; Glucose 99 mg/dL (80-115); Potassium 4.2 mmol/L (3.5-5.1); Sodium 135 mmol/L (136-145)
[2023-07-09 06:01] LABS: ALT (SGPT) 26 U/L (8-55); AST (SGOT) 30 U/L (5-34); Albumin 3.3 g/dL (3.4-4.8); Alkaline Phosphatase 182 U/L (40-110); Bilirubin, Direct 0.1 mg/dL (0.1-0.3); Bilirubin, Total 0.2 mg/dL (0.2-1.2); Protein, Total 5.2 g/dL (5.8-8.1)
[2023-07-09 06:41] LABS: Anisocytosis SLIGHT = 6-15 cells HPF (0-5); Hypochromia SLIGHT = 6-15 cells HPF (0-5); Platelet Adequacy Comment Platelets Normal; Polychromasia MODERATE = 3-4 cells HPF (0-2)
[2023-07-09] MEDS: Carvedilol 6.25 MG TAB PO SCH (08:28)
[2023-07-09 16:59] LABS: Hematocrit 25.6 % (36.0-47.0); Hemoglobin 7.6 g/dL (12.0-16.0)
[2023-07-10 05:12] LABS: #Basophils Less than 0.03 10x3/uL (0.0-0.2); %Basophils 0.2 % (0.0-1.0); %Eosinophils 1.6 % (0.0-10.0); %Lymphocytes 19.8 % (21.0-51.0); %Monocytes 6.6 % (0.0-10.0); %Neutrophils 71.5 % (42.0-75.0); Hematocrit 24.8 % (36.0-47.0); Hemoglobin 7.3 g/dL (12.0-16.0); Mean Corpuscular HGB CONC 29.4 g/dL (32.0-36.0); Mean Corpuscular Hemoglobin 24.5 pg (27.0-31.0); Mean Corpuscular Volume 83.2 fL (78.0-98.0); Mean Platelet Volume 10.2 fL (7.4-10.4); Platelet Count 126 10x3/uL (130-400); RBC Distribution Width 17.4 % (11.5-14.5); Red Blood Cell (RBC) Count 2.98 mill/uL (4.20-5.40)
[2023-07-10 05:34] LABS: Anion Gap 10 mmol/L (10-20); BUN (Urea Nitrogen) 23 mg/dL (9.8-20.1); Calc. Creatinine Clearance 44 mL/min (70-130); Carbon Dioxide 18 mmol/L (23-31); Chloride 111 mmol/L (98-107); Estimated GFR 56; Glucose 101 mg/dL (80-115); Potassium 4.3 mmol/L (3.5-5.1); Sodium 135 mmol/L (136-145)
[2023-07-10 06:38] LABS: Anisocytosis SLIGHT = 6-15 cells HPF (0-5); Hypochromia MODERATE=16-30 cells HPF (0-5); Ovalocytes SLIGHT = 2-5 cells HPF (0-1); Platelet Adequacy Comment Platelets Decreased; Polychromasia MODERATE = 3-4 cells HPF (0-2); Tear Drops SLIGHT = 2-5 cells HPF (0-1)
[2023-07-10] MEDS ORDERED: Ibuprofen 200 MG TAB PO PRN (13:15)
[2023-07-10] MEDS ORDERED: traMADol HCl 50 MG TAB PO PRN (13:17)
[2023-07-10] MEDS ORDERED: HYDROcodone/Acetaminophen 5/325 mg Tablet PO PRN (13:17)
[2023-07-10] MEDS ORDERED: Acetaminophen 325 MG TAB PO PRN (13:26)
[2023-07-10] MEDS: Ketorolac Tromethamine 30 MG (1 mL) VIAL IVP PRN (16:06)
[2023-07-10] MEDS: Ipratropium/Albuterol 3 ML NEB NEB SCH (18:41)
[2023-07-10] MEDS: HYDROcodone/Acetaminophen 5/325 mg Tablet PO PRN (20:33)
[2023-07-11 07:44] LABS: #Basophils Less than 0.03 10x3/uL (0.0-0.2); %Basophils 0.2 % (0.0-1.0); %Eosinophils 1.7 % (0.0-10.0); %Monocytes 6.5 % (0.0-10.0); %Neutrophils 70.4 % (42.0-75.0); Hematocrit 24.6 % (36.0-47.0); Hemoglobin 7.2 g/dL (12.0-16.0); Mean Corpuscular HGB CONC 29.3 g/dL (32.0-36.0); Mean Corpuscular Hemoglobin 25.2 pg (27.0-31.0); Mean Platelet Volume 9.2 fL (7.4-10.4); Platelet Count 127 10x3/uL (130-400); Red Blood Cell (RBC) Count 2.86 mill/uL (4.20-5.40)
[2023-07-11 07:55] LABS: ALT (SGPT) 15 U/L (8-55); AST (SGOT) 14 U/L (5-34); Alkaline Phosphatase 146 U/L (40-110); Anion Gap 8 mmol/L (10-20); BUN (Urea Nitrogen) 20 mg/dL (9.8-20.1); Bilirubin, Total 0.2 mg/dL (0.2-1.2); Calc. Creatinine Clearance 39 mL/min (70-130); Calcium 9.1 mg/dL (7.8-10.44); Carbon Dioxide 21 mmol/L (23-31); Chloride 111 mmol/L (98-107); Estimated GFR 49; Globulin 1.8 g/dL (2.4-3.5); Glucose 97 mg/dL (80-115); Protein, Total 4.8 g/dL (5.8-8.1); Sodium 136 mmol/L (136-145)
[2023-07-11] MEDS: Pancrelipase DR 12,000 1 CAP PO SCH (08:49)
[2023-07-11] MEDS: traMADol HCl 50 MG TAB PO PRN (20:19)
[2023-07-13 04:11] LABS: #Basophils Less than 0.03 10x3/uL (0.0-0.2); %Basophils 0.1 % (0.0-1.0); %Eosinophils 1.2 % (0.0-10.0); %Lymphocytes 19.8 % (21.0-51.0); %Monocytes 5.9 % (0.0-10.0); %Neutrophils 72.8 % (42.0-75.0); Hematocrit 24.6 % (36.0-47.0); Hemoglobin 7.3 g/dL (12.0-16.0); Mean Corpuscular HGB CONC 29.7 g/dL (32.0-36.0); Mean Corpuscular Hemoglobin 25.7 pg (27.0-31.0); Mean Corpuscular Volume 86.6 fL (78.0-98.0); Mean Platelet Volume 9.6 fL (7.4-10.4); Platelet Count 145 10x3/uL (130-400); Red Blood Cell (RBC) Count 2.84 mill/uL (4.20-5.40)
[2023-07-13 04:47] LABS: ALT (SGPT) 13 U/L (8-55); AST (SGOT) 16 U/L (5-34); Albumin 3.2 g/dL (3.4-4.8); Alkaline Phosphatase 157 U/L (40-110); Anion Gap 12 mmol/L (10-20); BUN (Urea Nitrogen) 22 mg/dL (9.8-20.1); Bilirubin, Total 0.2 mg/dL (0.2-1.2); Calc. Creatinine Clearance 30 mL/min (70-130); Calcium 9.3 mg/dL (7.8-10.44); Carbon Dioxide 19 mmol/L (23-31); Chloride 105 mmol/L (98-107); Estimated GFR 35; Glucose 96 mg/dL (80-115); Potassium 4.6 mmol/L (3.5-5.1); Protein, Total 5.2 g/dL (5.8-8.1); Sodium 131 mmol/L (136-145)
[2023-07-13 08:28] VITALS: BP 171/89
[2023-07-13 08:34] VITALS: TEMP 98.7
== END 2023-07-13 12:45 | disposition home or self-care (01) | DRG 439 ==
LOC: ERS 15:30 → MSONC 18:03
PROVIDERS: ADMIT Internal Medicine; ATTEND Internal Medicine
PROC: 30233N1 Transfusion of Nonautologous Red Blood Cells into Peripheral Vein, Percutaneous Approach (ICD-10-PCS; 2023-07-06)
PROC: 0DB98ZX Excision of Duodenum, Via Natural or Artificial Opening Endoscopic, Diagnostic (ICD-10-PCS; principal; 2023-07-08)
PROC: 0DB28ZX Excision of Middle Esophagus, Via Natural or Artificial Opening Endoscopic, Diagnostic (ICD-10-PCS; 2023-07-08)
PROC: 0DJD8ZZ Inspection of Lower Intestinal Tract, Via Natural or Artificial Opening Endoscopic (ICD-10-PCS; 2023-07-08)
DX: K85.90 Acute pancreatitis without necrosis or infection, unspecified (principal); D62 Acute posthemorrhagic anemia; E87.20 Acidosis, unspecified; K22.10 Ulcer of esophagus without bleeding; I13.0 Hypertensive heart and chronic kidney disease with heart failure and stage 1 through stage 4 chronic kidney disease, or unspecified chronic kidney disease; N17.9 Acute kidney failure, unspecified; I50.22 Chronic systolic (congestive) heart failure; K27.9 Peptic ulcer, site unspecified, unspecified as acute or chronic, without hemorrhage or perforation; E78.5 Hyperlipidemia, unspecified; I25.10 Atherosclerotic heart disease of native coronary artery without angina pectoris; I48.0 Paroxysmal atrial fibrillation; J44.9 Chronic obstructive pulmonary disease, unspecified; M10.9 Gout, unspecified; N18.30 Chronic kidney disease, stage 3 unspecified; D63.1 Anemia in chronic kidney disease; M19.90 Unspecified osteoarthritis, unspecified site; I65.29 Occlusion and stenosis of unspecified carotid artery; F32.A Depression, unspecified; E03.9 Hypothyroidism, unspecified; D50.9 Iron deficiency anemia, unspecified; F10.90 Alcohol use, unspecified, uncomplicated; Z79.899 Other long term (current) drug therapy; Z88.8 Allergy status to other drugs, medicaments and biological substances; Z79.82 Long term (current) use of aspirin; Z79.890 Hormone replacement therapy; Z95.810 Presence of automatic (implantable) cardiac defibrillator; Z98.890 Other specified postprocedural states; Z90.49 Acquired absence of other specified parts of digestive tract; Z90.710 Acquired absence of both cervix and uterus; Z93.3 Colostomy status; Z87.891 Personal history of nicotine dependence
CPT/HCPCS: 36415; 36430; 71045; 74176; 80048; 80053; 80076; 80306; 80307; 81001; 82607; 82728; 83540; 83550; 83605; 83690; 83735; 83880; 84443; 84484; 85025; 86140; 86850; 86900; 86901; 88305; 94640; 96374; 96375; J1885; J2001; J2270; J2272; J2405; J2704; J3010; J7050; J7620; P9016

== ENCOUNTER 2023-10-06 18:03 | Inpatient (IN) | payer MEDICARE, BC ==
[2023-10-06 18:24] VITALS: BMI 29.1
[2023-10-06] MEDS ORDERED: Acetaminophen 650 MG Suppository PR PRN (20:23)
[2023-10-06] MEDS ORDERED: Ondansetron ODT 4 MG TAB PO PRN (20:23)
[2023-10-06] MEDS ORDERED: Ondansetron PF 4 MG/2 ML Vial IVP PRN (20:23)
[2023-10-06] MEDS ORDERED: Ipratropium/Albuterol 3 ML NEB NEB PRN (20:25)
[2023-10-06] MEDS: Acetaminophen 325 MG TAB PO SCH (21:20)
[2023-10-06 22:29] LABS: Anion Gap 19 mmol/L (10-20); BUN (Urea Nitrogen) 65 mg/dL (9.8-20.1); Calc. Creatinine Clearance 22 mL/min (70-130); Calcium 9.1 mg/dL (7.8-10.44); Carbon Dioxide 10 mmol/L (23-31); Chloride 109 mmol/L (98-107); Estimated GFR 20; Glucose 176 mg/dL (80-115); Potassium 4.3 mmol/L (3.5-5.1); Sodium 134 mmol/L (136-145)
[2023-10-06 22:32] LABS: Hematocrit 41.6 % (36.0-47.0); Hemoglobin 13.4 g/dL (12.0-16.0); Mean Corpuscular HGB CONC 32.2 g/dL (32.0-36.0); Mean Corpuscular Hemoglobin 30.7 pg (27.0-31.0); Mean Corpuscular Volume 95.2 fL (78.0-98.0); Mean Platelet Volume 9.9 fL (7.4-10.4); Platelet Count 120 10x3/uL (130-400); RBC Distribution Width 20.9 % (11.5-14.5); Red Blood Cell (RBC) Count 4.37 mill/uL (4.20-5.40)
[2023-10-06 22:53] LABS: Anisocytosis SLIGHT = 6-15 cells HPF (0-5); Band 1 % (5-11); Lymphocytes 13 % (21-51); Neutrophil 86 % (42-75); Platelet Adequacy Comment Platelets Decreased; Poikilocytosis SLIGHT = 6-15 cells HPF (0-5); Polychromasia SLIGHT = 2-3 cells HPF (0-2)
[2023-10-06] MEDS: Ipratropium/Albuterol 3 ML NEB NEB SCH (22:58)
[2023-10-06] MEDS: Morphine 4 MG/ML VIAL SLOW IVP PRN (22:58)
[2023-10-07 08:15] LABS: Anion Gap 21 mmol/L (10-20); BUN (Urea Nitrogen) 64 mg/dL (9.8-20.1); Calc. Creatinine Clearance 24 mL/min (70-130); Calcium 8.8 mg/dL (7.8-10.44); Carbon Dioxide 9 mmol/L (23-31); Chloride 106 mmol/L (98-107); Estimated GFR 23; Glucose 112 mg/dL (80-115); Potassium 3.9 mmol/L (3.5-5.1); Sodium 132 mmol/L (136-145)
[2023-10-07 08:29] LABS: #Basophils Less than 0.03 10x3/uL (0.0-0.2); #Eosinphils Less than 0.03 10x3/uL (0.0-0.7); %Lymphocytes 23.4 % (21.0-51.0); %Monocytes 5.7 % (0.0-10.0); %Neutrophils 70.4 % (42.0-75.0); Hemoglobin 13.1 g/dL (12.0-16.0); Mean Corpuscular HGB CONC 32.8 g/dL (32.0-36.0); Mean Corpuscular Volume 91.7 fL (78.0-98.0); Platelet Count 106 10x3/uL (130-400); RBC Distribution Width 20.7 % (11.5-14.5); Red Blood Cell (RBC) Count 4.36 mill/uL (4.20-5.40)
[2023-10-07] MEDS: methylPREDNISolone Sod Succ 40 MG VIAL IVP SCH (08:31)
[2023-10-07] MEDS ORDERED: predniSONE 20 MG TAB PO SCH (13:15)
[2023-10-07] MEDS ORDERED: HYDROcodone/Acetaminophen 5/325 mg Tablet PO PRN (13:16)
[2023-10-07] MEDS: predniSONE 20 MG TAB PO SCH (15:09)
[2023-10-07] MEDS: Sodium Bicarbonate 100 MEQ in Dextrose 5% in Water 1,000 ML IV SCH (15:11)
[2023-10-07] MEDS: HYDROcodone/Acetaminophen 10/325 mg Tablet PO PRN (15:25)
[2023-10-07] MEDS: Carvedilol 25 MG TAB PO SCH (17:23)
[2023-10-07] MEDS: Doxycycline 100 MG CAP PO SCH (21:06)
[2023-10-08 05:05] LABS: Anion Gap 17 mmol/L (10-20); BUN (Urea Nitrogen) 65 mg/dL (9.8-20.1); Calc. Creatinine Clearance 31 mL/min (70-130); Calcium 8.9 mg/dL (7.8-10.44); Carbon Dioxide 13 mmol/L (23-31); Chloride 105 mmol/L (98-107); Estimated GFR 31; Glucose 144 mg/dL (80-115); Potassium 3.7 mmol/L (3.5-5.1); Sodium 131 mmol/L (136-145)
[2023-10-08] MEDS: predniSONE 20 MG TAB PO SCH (08:14)
[2023-10-08] MEDS ORDERED: Electrolyte Replacement Protocol 1 EACH FS SCH (09:00)
[2023-10-08] MEDS: Sodium Bicarbonate 100 MEQ in Dextrose 5% in Water 1,000 ML IV SCH (10:14)
[2023-10-08] MEDS: Pantoprazole DR 40 MG TAB PO SCH (12:04)
[2023-10-08] MEDS ORDERED: Acetaminophen 325 MG TAB PO PRN (21:39)
[2023-10-08] MEDS ORDERED: Sodium Bicarbonate 100 MEQ in Dextrose 5% in Water 1,000 ML IV SCH (22:15)
[2023-10-08] MEDS: Morphine 2 MG/ML VIAL SLOW IVP PRN (23:49)
[2023-10-09 04:47] LABS: Phosphorus 2.1 mg/dL (2.3-4.7)
[2023-10-09 04:48] LABS: Anion Gap 14 mmol/L (10-20); BUN (Urea Nitrogen) 50 mg/dL (9.8-20.1); Calc. Creatinine Clearance 44 mL/min (70-130); Calcium 9.2 mg/dL (7.8-10.44); Carbon Dioxide 19 mmol/L (23-31); Chloride 101 mmol/L (98-107); Estimated GFR 47; Glucose 129 mg/dL (80-115); Magnesium 1.8 mg/dL (1.6-2.6); Potassium 3.7 mmol/L (3.5-5.1); Sodium 130 mmol/L (136-145)
[2023-10-09] MEDS: Isosorbide Mononitrate 30 MG ER.TAB PO SCH (09:27)
[2023-10-09] MEDS: Magnesium 2 GM/50 ML(in water) 2 GM in Premix 1 BAG IVPB SCH (09:29)
[2023-10-09] MEDS: Pantoprazole DR 40 MG TAB PO SCH (09:30)
[2023-10-09 11:05] VITALS: BP 152/74; TEMP 98.7
== END 2023-10-09 13:00 | disposition home or self-care (01) | DRG 189 ==
LOC: 2SW 18:03 → OBSVTOIN 10-08 10:49
PROVIDERS: ADMIT Student in an Organized Health Care Education/Training Program; ATTEND Internal Medicine Critical Care Medicine
DX: J96.20 Acute and chronic respiratory failure, unspecified whether with hypoxia or hypercapnia (principal); J44.1 Chronic obstructive pulmonary disease with (acute) exacerbation; N17.9 Acute kidney failure, unspecified; I13.0 Hypertensive heart and chronic kidney disease with heart failure and stage 1 through stage 4 chronic kidney disease, or unspecified chronic kidney disease; E87.20 Acidosis, unspecified; N18.30 Chronic kidney disease, stage 3 unspecified; M19.90 Unspecified osteoarthritis, unspecified site; E03.9 Hypothyroidism, unspecified; I48.91 Unspecified atrial fibrillation; E11.22 Type 2 diabetes mellitus with diabetic chronic kidney disease; I50.9 Heart failure, unspecified; Z95.810 Presence of automatic (implantable) cardiac defibrillator; Z79.899 Other long term (current) drug therapy; Z79.82 Long term (current) use of aspirin; Z79.890 Hormone replacement therapy; Z79.01 Long term (current) use of anticoagulants; I25.2 Old myocardial infarction; Z90.710 Acquired absence of both cervix and uterus; Z88.8 Allergy status to other drugs, medicaments and biological substances; Z87.891 Personal history of nicotine dependence
CPT/HCPCS: 36415; 71045; 80048; 80053; 83605; 83735; 83880; 84100; 84484; 85025; 87040; 93005; 94640; J0696; J1100; J2270; J2272; J2920; J3475; J7070; J7512; J7611; J7620

== ENCOUNTER 2023-12-30 11:23 | Outpatient (CLI) | payer MEDICARE, BC | END 2023-12-30 11:24 | disposition home or self-care (01) | LOC: BICMAMMO 11:23 | PROVIDERS: ATTEND Internal Medicine | DX: Z12.31 Encounter for screening mammogram for malignant neoplasm of breast (principal) | CPT/HCPCS: 77063; 77067 ==

== ENCOUNTER 2024-03-18 15:11 | Emergency (ER) | payer MEDICARE, BC ==
[2024-03-18] MEDS ORDERED: Ondansetron PF 4 MG/2 ML Vial ONE ×2 (15:44→17:35)
[2024-03-18] MEDS ORDERED: HYDROmorphone 0.5 MG/0.5 ML SYRINGE ONE (15:44)
[2024-03-18] MEDS ORDERED: Proparacaine 0.5% Opth 15 ML BOT ONE (15:49)
[2024-03-18 16:38] LABS: INR-International Normal Ratio 1.1; Prothrombin Time 14.6 sec (12.0-14.7)
[2024-03-18] MEDS ORDERED: Lidocaine 1% PF 5 ML VIAL ONE (16:57)
[2024-03-18] MEDS ORDERED: Midazolam HCl 2 mg/2 ml Vial ONE ×2 (16:59→17:04)
[2024-03-18] MEDS ORDERED: Ketamine In 0.9 % NaCl 50 MG/5 ML SYRINGE ONE ×2 (17:07→17:55)
[2024-03-18 17:23] LABS: #Basophils Less than 0.03 10x3/uL (0.0-0.2); %Basophils 0.3 % (0.0-1.0); %Eosinophils 1.1 % (0.0-10.0); %Lymphocytes 20.8 % (21.0-51.0); %Monocytes 6.5 % (0.0-10.0); %Neutrophils 70.5 % (42.0-75.0); Hematocrit 36.6 % (36.0-47.0); Hemoglobin 11.1 g/dL (12.0-16.0); Mean Corpuscular HGB CONC 30.3 g/dL (32.0-36.0); Mean Corpuscular Hemoglobin 30.1 pg (27.0-31.0); Mean Corpuscular Volume 99.2 fL (78.0-98.0); Mean Platelet Volume 10.1 fL (7.4-10.4); Platelet Count 145 10x3/uL (130-400); RBC Distribution Width 17.5 % (11.5-14.5); Red Blood Cell (RBC) Count 3.69 mill/uL (4.20-5.40)
[2024-03-18 17:49] LABS: ALT (SGPT) 8 U/L (8-55); AST (SGOT) 18 U/L (5-34); Albumin 3.9 g/dL (3.4-4.8); Alkaline Phosphatase 137 U/L (40-110); Anion Gap 16 mmol/L (10-20); BUN (Urea Nitrogen) 26 mg/dL (9.8-20.1); Bilirubin, Total 0.2 mg/dL (0.2-1.2); Calc. Creatinine Clearance 0 mL/min (70-130); Calcium 10.4 mg/dL (7.8-10.44); Carbon Dioxide 14 mmol/L (23-31); Chloride 112 mmol/L (98-107); Estimated GFR 36; Glucose 124 mg/dL (80-115); Potassium 4.8 mmol/L (3.5-5.1); Protein, Total 6.9 g/dL (5.8-8.1); Sodium 137 mmol/L (136-145)
== END 2024-03-18 18:20 | disposition critical access hospital, planned readmission (94) ==
LOC: ERS 15:11
DX: S05.11XA Contusion of eyeball and orbital tissues, right eye, initial encounter (principal); S02.85XA Fracture of orbit, unspecified, initial encounter for closed fracture; I11.0 Hypertensive heart disease with heart failure; I50.9 Heart failure, unspecified; I25.2 Old myocardial infarction; I48.91 Unspecified atrial fibrillation; E78.5 Hyperlipidemia, unspecified; J44.9 Chronic obstructive pulmonary disease, unspecified; F17.290 Nicotine dependence, other tobacco product, uncomplicated; Z95.5 Presence of coronary angioplasty implant and graft; Z95.0 Presence of cardiac pacemaker; Z23 Encounter for immunization; Z79.899 Other long term (current) drug therapy; Z79.51 Long term (current) use of inhaled steroids; Z79.01 Long term (current) use of anticoagulants; W01.10XA Fall on same level from slipping, tripping and stumbling with subsequent striking against unspecified object, initial encounter
CPT/HCPCS: 67715; 70450; 70486; 72125; 80053; 85025; 85610; 96374; 96375; 99152; 99285; J2250; J2405; J3490; G0390